=== PATIENT | male | born 1955 | race Caucasian/White ===

== ENCOUNTER 2018-02-26 05:02 | Emergency (ER) | payer OTHER ==
[2018-02-26 05:26] LABS: BASOPHILS # (AUTO) 0.2 10^3/uL (0.0-0.1); BASOPHILS % (AUTO) 2.5 %; EOSINOPHILS # (AUTO) 0.1 10^3/uL (0.0-0.7); EOSINOPHILS % (AUTO) 1.4 %; HGB - HEMOGLOBIN 14.1 g/dL (14.0-18.0); LYMPHOCYTES # (AUTO) 2.4 10^3/uL (1.5-3.5); LYMPHOCYTES % (AUTO) 28.8 %; MEAN CORPUSCULAR HEMOGLOBIN 31.8 pg (27.0-31.0); MEAN CORPUSCULAR HGB CONC 35.6 g/dL (32.0-36.0); MEAN CORPUSCULAR VOLUME 89.2 fL (80.0-94.0); MEAN PLATELET VOLUME 8.1 fL (7.4-11.4); MONOCYTES # (AUTO) 0.5 10^3/uL (0.0-1.0); MONOCYTES % (AUTO) 6.3 %; NEUTROPHILS # (AUTO) 5.1 10^3/uL (1.5-6.6); PLT - PLATELET COUNT 293 10^3/uL (130-450); RED BLOOD COUNT 4.44 10^6/uL (4.70-6.10); RED CELL DISTRIBUTION WIDTH 12.8 % (12.0-15.0); WHITE BLOOD COUNT 8.4 x10^3/uL (4.8-10.8)
[2018-02-26] MEDS ORDERED: ONDANSETRON 4 MG/2 ML VIAL IVP STA (05:38)
[2018-02-26] MEDS ORDERED: MORPHINE 2 MG/ML CARPUJECT IVP STA (05:38)
--- NOTE | 2018-02-26 05:38 | ED Physician Documentation ---
PD HPI ABD PAIN - Stated complaint Stated Complaint: UPPER ABD PX - Chief complaint Chief Complaint: Cardiac - History obtained from History obtained from: Patient - History of Present Illness Timing - onset: How many hours ago (2) Timing - duration: Hours Timing - details: Abrupt onset, Still present in ED Pain level max: 10 Pain level now: 10 Quality: Pain Location: LUQ Radiation: Left flank Improved by: Other (nothing) Worsened by: Other (no apparent exacerbating factors) Associated symptoms: Nausea, Vomiting. No: Fever, Diarrhea, Constipation Similar symptoms before: Has not had sx before Recently seen: Not recently seen Review of Systems Constitutional: reports: Sweats. denies: Fever, Chills Cardiac: reports: Reviewed and negative Respiratory: reports: Reviewed and negative GI: reports: Abdominal Pain, Nausea, Vomiting : denies: Dysuria, Frequency, Hematuria PD PAST MEDICAL HISTORY - Past Medical History Past Medical History: Yes Cardiovascular: High cholesterol Respiratory: None Endocrine/Autoimmune: Type 2 diabetes GI: None : None HEENT: Other Psych: None Musculoskeletal: Osteoarthritis Derm: None - Past Surgical History Past Surgical History: Yes Ortho: Carpal Tunnel surgery Cardiovascular: Vascular surgery - Present Medications Home Medications: Ambulatory Orders Medication Instructions Recorded Confirmed Lisinopril 10 mg PO DAILY 10/23/12 01/16/14 metFORMIN [Glucophage] 1,000 mg PO BIDWM 10/23/12 01/16/14 Atorvastatin [Lipitor] 1 tab PO DAILY 02/26/18 02/26/18 HYDROcod/ACETAM 5/325 [[place] 5/325] 1 - 2 ea PO Q6H PRN #15 tablet 02/26/18 Insulin Aspart [NovoLOG] 20 units SQ BID 02/26/18 02/26/18 Insulin Glargine [Lantus Solostar] 40 units SQ DAILY 02/26/18 02/26/18 Ondansetron Odt [Zofran] 4 mg TL Q6H PRN #10 tablet 02/26/18 hydroCHLOROthiazide 1 tab PO DAILY 02/26/18 02/26/18 [Hydrochlorothiazide] - Allergies Allergies/Adverse Reactions: Allergies Allergy/AdvReac Type Severity Reaction Status Date / Time Penicillins Allergy Intermediate Rash Verified 02/26/18 05:30 - Social History Does the pt smoke?: No Smoking Status: Never smoker Does the pt drink ETOH?: No Does the pt have substance abuse?: No - Immunizations Immunizations are current?: Yes - POLST Patient has POLST: No PD ED PE NORMAL - Vitals Vital signs reviewed: Yes - General General: Alert and oriented X 3, Well developed/nourished, Other (Severe painful distress, pale and diaphoretic) - HEENT HEENT: Moist mucous membranes - Neck Neck: Supple, no meningeal sign - Cardiac Cardiac: RRR, No murmur - Respiratory Respiratory: No respiratory distress, Clear bilaterally - Abdomen Abdomen: Soft, Non tender, Non distended - Derm Derm: Normal color, Warm and dry, No rash - Extremities Extremities: No edema Results - Vitals Vitals: Oxygen O2 Source Room air - Labs Labs: Laboratory Tests 02/26/18 02/26/18 02/26/18 05:10 05:10 05:10 WBC 8.4 RBC 4.44 L Hgb 14.1 Hct 39.6 L MCV 89.2 MCH 31.8 H MCHC 35.6 RDW 12.8 Plt Count 293 MPV 8.1 Neut # (Auto) 5.1 Lymph # (Auto) 2.4 [place] # (Auto) 0.5 Eos # (Auto) 0.1 Baso # (Auto) 0.2 H Absolute Nucleated RBC 0.01 Nucleated RBC % 0.1 Sodium 138 Potassium 3.3 L Chloride 98 L Carbon Dioxide 31 Anion Gap 9.0 BUN 18 Creatinine 1.4 H Estimated GFR (MDRD) 51 L Glucose 209 H Calcium 9.1 Total Bilirubin 0.6 AST 23 ALT 28 Alkaline Phosphatase 68 Troponin I < 0.04 Total Protein 7.0 Albumin 3.9 Globulin 3.1 Albumin/Globulin Ratio 1.3 Lipase 59 H Urine Color Urine Clarity Urine pH Ur Specific [place] Urine Protein Urine Glucose (UA) Urine Ketones Urine Occult Blood Urine Nitrite Urine Bilirubin Urine Urobilinogen Ur Leukocyte Esterase Ur Microscopic Review Urine Culture Comments 02/26/18 05:38 WBC RBC Hgb Hct MCV MCH MCHC RDW Plt Count MPV Neut # (Auto) Lymph # (Auto) [place] # (Auto) Eos # (Auto) Baso # (Auto) Absolute Nucleated RBC Nucleated RBC % Sodium Potassium Chloride Carbon Dioxide Anion Gap BUN Creatinine Estimated GFR (MDRD) Glucose Calcium Total Bilirubin AST ALT Alkaline Phosphatase Troponin I Total Protein Albumin Globulin Albumin/Globulin Ratio Lipase Urine Color YELLOW Urine Clarity CLEAR Urine pH 7.5 Ur Specific [place] 1.015 Urine Protein NEGATIVE Urine Glucose (UA) 100 H Urine Ketones NEGATIVE Urine Occult Blood NEGATIVE Urine Nitrite NEGATIVE Urine Bilirubin NEGATIVE Urine Urobilinogen 0.2 (NORMAL) Ur Leukocyte Esterase NEGATIVE Ur Microscopic Review NOT INDICATED Urine Culture Comments NOT INDICATED - Rads (name of study) CT A/P Radiology: Prelim report reviewed, See rad report PD MEDICAL DECISION MAKING - ED course Complexity details: reviewed results, re-evaluated patient, considered differential, d/w patient ED course: patient was in NAD after 4 morphine IV with zofran IV and fluids. he declined stronger pain medication, and reported excellent relief with just the 4mg morphine. - Sepsis Event Vital Signs: Oxygen O2 Source Room air Departure - Departure Disposition: 01 Home, Self Care Clinical Impression: Biliary colic Condition: Good Instructions: ED Gallstone W Biliary Colic Follow-Up: EMILIANA LEE MD [Provider Admit Priv/Credential] - Prescriptions: HYDROcod/ACETAM 5/325 [[place] 5/325] 1 - 2 ea PO Q6H PRN #15 tablet PRN Reason: Pain Ondansetron Odt [Zofran] 4 mg TL Q6H PRN #10 tablet PRN Reason: Nausea / Vomiting Discharge Date/Time: 02/26/18 07:36
[2018-02-26 05:41] LABS: ALBUMIN 3.9 g/dL (3.2-5.5); ALBUMIN/GLOBULIN RATIO 1.3 (1.0-2.2); BILIRUBIN,TOTAL 0.6 mg/dL (0.2-1.0); CALCIUM 9.1 mg/dL (8.5-10.3); CREATININE 1.4 mg/dL (0.6-1.2)
--- NOTE | 2018-02-26 05:45 | XRAY Report ---
Reason: chest pain Procedure Date: 02/26/2018 Accession Number: [id number] / [id number] Procedure: XR - Chest 1 View X-Ray CPT Code: 04791 FULL RESULT: EXAM: CHEST RADIOGRAPHY EXAM DATE: 02/26/2018 05:29 AM. CLINICAL HISTORY: Chest pain. Sudden onset left-sided chest pain tonight. COMPARISON: XR CHEST 1 VIEWS 01/07/2010 1:41 PM. TECHNIQUE: 1 view. FINDINGS: Lungs/Pleura: No focal opacities evident. No pleural effusion. No pneumothorax. Mediastinum: Within exam limitations, the cardiomediastinal contour is normal. Other: There is moderate to severe degenerative change about the left shoulder. IMPRESSION: Stable appearance of the chest without acute cardiopulmonary abnormality. RADIA
[2018-02-26] MEDS ORDERED: IOPAMIDOL-300 100 ML VIAL ONE (05:48)
[2018-02-26 05:57] LABS: BILIRUBIN,URINE NEGATIVE (NEGATIVE); GLUCOSE, URINE (UA) 100 mg/dL (NEGATIVE); KETONES,URINE (UA) NEGATIVE (NEGATIVE); LEUKOCYTE ESTERASE, URINE NEGATIVE (NEGATIVE); NITRITE,URINE NEGATIVE (NEGATIVE); OCCULT BLOOD,URINE NEGATIVE (NEGATIVE); PH,URINE 7.5 PH (5.0-7.5); PROTEIN,URINE NEGATIVE (NEGATIVE); UROBILINOGEN,URINE 0.2 (NORMAL) E.U./dL (NORMAL)
[2018-02-26 05:59] LABS: CLARITY,URINE CLEAR (CLEAR)
[2018-02-26] MEDS ORDERED: IOPAMIDOL-300 100 ML VIAL IVP ONE (06:18)
--- NOTE | 2018-02-26 06:28 | CT Report ---
Reason: LUQ pain Procedure Date: 02/26/2018 Accession Number: [id number] / [id number] Procedure: CT - Abdomen/Pelvis W/ CPT Code: FULL RESULT: EXAM: CT ABDOMEN AND PELVIS EXAM DATE: 02/26/2018 06:16 AM. CLINICAL HISTORY: Left upper quadrant pain. COMPARISONS: 01/07/2010 3:17 PM. TECHNIQUE: Routine helical CT imaging was performed through the abdomen and pelvis. IV contrast: Yes. Enteric contrast: No. Reconstructions: Coronal and sagittal. In accordance with CT protocol optimization, one or more of the following dose reduction techniques were utilized for this exam: automated exposure control, adjustment of mA and/or KV based on patient size, or use of iterative reconstructive technique. FINDINGS: Lung Bases: Unremarkable. Liver: Fatty. No suspicious masses. Gallbladder/Bile Ducts: Cholelithiasis, otherwise unremarkable. Spleen: Unremarkable. Pancreas: Unremarkable. Adrenal Glands: Unremarkable. Kidneys: Unremarkable. No suspicious masses or hydronephrosis. Peritoneal Cavity/Bowel: No bowel obstruction or inflammatory process seen. No free air or significant free fluid. No masses or adenopathy. The appendix is normal. Moderate stool burden. Pelvic Organs: Bladder and prostate appear unremarkable. Vasculature: No aneurysms or other significant abnormality. Bones: No significant abnormality. Other: None. IMPRESSION: 1. No acute inflammatory or obstructive process seen in the abdomen or pelvis. 2. Moderate stool burden. 3. Fatty liver. 4. Cholelithiasis. RADIA
[2018-02-26 07:37] VITALS: BP 127/80
== END 2018-02-26 07:36 | disposition home or self-care (01) ==
LOC: ED 05:02
DX: K80.50 Calculus of bile duct without cholangitis or cholecystitis without obstruction (principal); E11.9 Type 2 diabetes mellitus without complications; Z79.4 Long term (current) use of insulin; E78.00 Pure hypercholesterolemia, unspecified
CPT/HCPCS: 36415; 71045; 74177; 80053; 81003; 83690; 84484; 85025; 93005; 96374; 96375; 99283; 99284; Q9967; 81001; 87086

== ENCOUNTER 2018-02-26 21:45 | Emergency (ER) | payer OTHER | END 2018-02-26 21:59 | disposition left against medical advice (07) | LOC: ED 21:45 | DX: Z53.21 Procedure and treatment not carried out due to patient leaving prior to being seen by health care provider (principal) ==

== ENCOUNTER 2018-08-17 23:56 | Outpatient (CLI) | payer OTHER | END 2018-08-17 23:57 | disposition critical access hospital (66) | LOC: EMS 23:56 | PROVIDERS: ATTEND Surgery | DX: R10.10 Upper abdominal pain, unspecified (principal); R55 Syncope and collapse; R11.2 Nausea with vomiting, unspecified | CPT/HCPCS: A0425; A0427 ==

== ENCOUNTER 2018-08-18 00:19 | Emergency (ER) | payer OTHER ==
--- NOTE | 2018-08-18 01:07 | ED Physician Documentation ---
PD HPI ABD PAIN - Stated complaint Stated Complaint: SHARP ABD PAIN - Chief complaint Chief Complaint: Abd Pain - History obtained from History obtained from: Patient, EMS - History of Present Illness Timing - onset: How many hours ago (approximately 1 hour ago) Timing - details: Abrupt onset Pain level max: 10 Pain level now: 0 Quality: Pain Location: Epigastric Radiation: Other (no radiation) Improved by: Other (zofran (nausea). pain has resolved spontaneously en route) Worsened by: Palpation Associated symptoms: Nausea, Vomiting (resolved). No: Fever, Diarrhea, Constip ation Similar symptoms before: Diagnosis (similar to previous episode of gallstones and gallstone pancreatitis) Recently seen: Not recently seen - Additional information Additional information: BIBA for sudden onset severe epigastric pain, onset while at home at rest, with nausea and vomiting. Given zofran en route but no analgesics and symptoms have completely resolved by the time of this evaluation. He was inpatient in [facility] ([place] in May for similar pain which, by patient's description, sounds like it was caused by gallstone pancreatitis. He says he was in the ICU at that time, and he describes both fever and possibly jaundice. He is scheduled to have cholecystectomy in about 2 weeks at [facility]. He says he was told it would have to be an open procedure due to something about his "gut anatomy". Review of Systems Constitutional: denies: Fever, Chills, Sweats Eyes: reports: Reviewed and negative Ears: reports: Reviewed and negative Nose: reports: Reviewed and negative Throat: reports: Reviewed and negative Cardiac: reports: Reviewed and negative Respiratory: reports: Reviewed and negative GI: reports: Abdominal Pain (resolved), Nausea, Vomiting (resolved) : reports: Reviewed and negative Skin: reports: Reviewed and negative Musculoskeletal: reports: Reviewed and negative Neurologic: reports: Reviewed and negative PD PAST MEDICAL HISTORY - Past Medical History Past Medical History: Yes Cardiovascular: High cholesterol Respiratory: None Neuro: None Endocrine/Autoimmune: Type 2 diabetes GI: None : None HEENT: Other Psych: None Musculoskeletal: Osteoarthritis Derm: None - Past Surgical History Past Surgical History: Yes Ortho: Carpal Tunnel surgery Cardiovascular: Vascular surgery - Present Medications Home Medications: Ambulatory Orders Medication Instructions Recorded Confirmed Lisinopril 20 mg PO DAILY 10/23/12 08/18/18 metFORMIN [Glucophage] 2,000 mg PO BIDWM 10/23/12 08/18/18 Atorvastatin [Lipitor] 10 tab PO DAILY 02/26/18 08/18/18 Insulin Aspart [NovoLOG] 20 units SQ BID 02/26/18 08/18/18 Insulin Glargine [Lantus Solostar] 34 units SQ DAILY 02/26/18 08/18/18 hydroCHLOROthiazide 25 tab PO DAILY 02/26/18 08/18/18 [Hydrochlorothiazide] - Allergies Allergies/Adverse Reactions: Allergies Allergy/AdvReac Type Severity Reaction Status Date / Time Penicillins Allergy Intermediate Rash Verified 02/26/18 05:30 - Social History Does the pt smoke?: No Smoking Status: Never smoker Does the pt drink ETOH?: No Does the pt have substance abuse?: No - Immunizations Immunizations are current?: Yes - POLST Patient has POLST: No PD ED PE NORMAL - Vitals Vital signs reviewed: Yes - General General: Alert and oriented X 3, No acute distress, Well developed/nourished - HEENT HEENT: Moist mucous membranes - Neck Neck: Supple, no meningeal sign - Cardiac Cardiac: RRR, No murmur, No gallop, No rub - Respiratory Respiratory: No respiratory distress, Clear bilaterally - Abdomen Abdomen: Normal bowel sounds, Soft, Non tender, Non distended, No organomegaly - Back Back: No CVA TTP - Derm Derm: Normal color, Warm and dry - Extremities Extremities: No edema - Neuro Neuro: Alert and oriented X 3 Results - Vitals Vitals: Vital Signs - 24 hr 08/18/18 08/18/18 08/18/18 00:21 00:37 00:42 Temperature 36.4 C L Heart Rate 88 84 Respiratory 16 16 17 Rate Blood Pressure 117/73 122/65 O2 Saturation 93 08/18/18 08/18/18 08/18/18 01:32 01:49 02:13 Temperature Heart Rate 92 90 Respiratory 16 15 14 Rate Blood Pressure 126/68 133/72 H O2 Saturation 94 95 08/18/18 08/18/18 08/18/18 02:35 02:37 03:06 Temperature Heart Rate 101 H 105 H Respiratory 17 17 16 Rate Blood Pressure 125/87 H O2 Saturation 95 94 08/18/18 08/18/18 08/18/18 03:34 04:04 05:06 Temperature 36.9 C Heart Rate 104 H 110 H 113 H Respiratory 12 14 17 Rate Blood Pressure 105/73 119/84 H 142/75 H O2 Saturation 95 99 97 08/18/18 08/18/18 08/18/18 05:40 06:10 06:12 Temperature Heart Rate 112 H 112 H Respiratory 14 16 15 Rate Blood Pressure 118/73 130/74 O2 Saturation 95 96 08/18/18 07:44 Temperature Heart Rate 115 H Respiratory 18 Rate Blood Pressure 127/77 O2 Saturation 95 Oxygen O2 Source Room air Oxygen Flow Rate 2 - Labs Labs: Laboratory Tests 08/18/18 08/18/18 01:35 01:35 WBC 16.7 H RBC 4.32 L Hgb 13.3 L Hct 38.6 L MCV 89.2 MCH 30.7 MCHC 34.4 RDW 13.3 Plt Count 254 MPV 8.0 Neut # (Auto) 14.0 H Lymph # (Auto) 1.8 [place] # (Auto) 0.8 Eos # (Auto) 0.1 Baso # (Auto) 0.0 Absolute Nucleated RBC 0.00 Nucleated RBC % 0.0 Sodium 140 Potassium 3.3 L Chloride 101 Carbon Dioxide 27 Anion Gap 12.0 BUN 23 H Creatinine 1.1 Estimated GFR (MDRD) 68 L Glucose 151 H Calcium 8.9 Total Bilirubin 1.2 H AST 208 H ALT 118 H Alkaline Phosphatase 116 Total Protein 6.6 L Albumin 3.6 Globulin 3.0 Albumin/Globulin Ratio 1.2 Amylase 969 H* Lipase 1990 H - Rads (name of study) CT A/P with IV contrast Radiology: Prelim report reviewed, See rad report PD MEDICAL DECISION MAKING - ED course Complexity details: reviewed old records, reviewed results, re-evaluated patient, considered differential, d/w patient, d/w family ED course: Initial w/u limited to blood tests, as patient arrived asymptomatic after zofran and had benign abdominal exam. Unfortunately, he has significant elevations in amylase and lipase; he has mild elevations in bilirubin, AST, and ALT. WBC 16.4. On reevaluation, he says he is now having mild/moderate epigastric pain and thus given dilaudid 0.5mg IV (with good pain relief). [place] was contacted for consideration of transfer, but they have no beds available. Both [facility] and [facility] contacted, but no beds available. D/W Dr. Amos Meier (hospitalist at [facility]); he is willing to accept patient, but asks that CT A/P with IV contrast be performed first (if no evidence of filling defect or biliary ductal dilatation, could consider admission to [facility] for pancreatitis). After CT results, I d/w Dr. Dobson ([facility] hospitalist). He expresses concern that, should patient's condition worsen and further testing indicate that the gallstones are involved, patient's case could become too complex for [facility]. I recontacted Dr. Meier, who accepts transfer to [facility]. Patient had recurrence of mild/moderate pain and thus given another dose of dilaudid 0.5mg IV Departure - Departure Disposition: 02 Transfer Acute Care Hosp Clinical Impression: Pancreatitis, Gallstones Condition: Stable
[2018-08-18 01:43] LABS: BASOPHILS % (AUTO) 0.2 %; EOSINOPHILS # (AUTO) 0.1 10^3/uL (0.0-0.7); EOSINOPHILS % (AUTO) 0.3 %; HGB - HEMOGLOBIN 13.3 g/dL (14.0-18.0); LYMPHOCYTES # (AUTO) 1.8 10^3/uL (1.5-3.5); MEAN CORPUSCULAR HEMOGLOBIN 30.7 pg (27.0-31.0); MEAN CORPUSCULAR HGB CONC 34.4 g/dL (32.0-36.0); MEAN CORPUSCULAR VOLUME 89.2 fL (80.0-94.0); MONOCYTES # (AUTO) 0.8 10^3/uL (0.0-1.0); MONOCYTES % (AUTO) 4.8 %; NEUTROPHILS % (AUTO) 83.7 %; PLT - PLATELET COUNT 254 10^3/uL (130-450); RED BLOOD COUNT 4.32 10^6/uL (4.70-6.10); RED CELL DISTRIBUTION WIDTH 13.3 % (12.0-15.0); WHITE BLOOD COUNT 16.7 x10^3/uL (4.8-10.8)
[2018-08-18 02:05] LABS: ALBUMIN 3.6 g/dL (3.2-5.5); ALBUMIN/GLOBULIN RATIO 1.2 (1.0-2.2); BILIRUBIN,TOTAL 1.2 mg/dL (0.2-1.0); CALCIUM 8.9 mg/dL (8.5-10.3); CREATININE 1.1 mg/dL (0.6-1.2); TOTAL PROTEIN 6.6 g/dL (6.7-8.2)
[2018-08-18] MEDS ORDERED: HYDROmorphone 1 MG/ML CARPUJECT IVP STA ×2 (02:54→06:09)
[2018-08-18] MEDS ORDERED: SODIUM CHLORIDE 0.9% 1,000 ML IV STA (02:54)
[2018-08-18] MEDS ORDERED: IOPAMIDOL-300 100 ML VIAL ONE (04:19)
[2018-08-18] MEDS ORDERED: IOPAMIDOL-300 100 ML VIAL IVP ONE (05:00)
--- NOTE | 2018-08-18 05:15 | CT Report ---
Reason: abd. pain Procedure Date: 08/18/2018 Accession Number: [id number] / [id number] Procedure: CT - Abdomen/Pelvis W CPT Code: FULL RESULT: EXAM: CT PANCREAS AND PELVIS EXAM DATE: 08/18/2018 05:02 AM. CLINICAL HISTORY: Abd. pain. COMPARISONS: ABDOMEN/PELVIS W/ 02/26/2018 6:05 AM. TECHNIQUE: Routine multiphase pancreatic CT protocol with imaging of the pelvis in the venous phase. IV contrast: ISOVUE 300 100mL. Enteric contrast: None. Reconstructions: Coronal and sagittal. In accordance with CT protocol optimization, one or more of the following dose reduction techniques were utilized for this exam: automated exposure control, adjustment of mA and/or KV based on patient size, or use of iterative reconstructive technique. FINDINGS: Lung Bases: Is more atelectasis. Small little hernia. Pancreas: Mild inflammation around the pancreatic head. No pseudocyst or pancreatic necrosis. Normal pancreatic enhancement. Other Solid Organs: Normal. No masses or abnormal enhancement. Gallbladder/Biliary System: Cholelithiasis. No evidence of biliary dilatation. Peritoneal Cavity: Normal. No free fluid, free air or adenopathy. No masses or acute inflammatory process. The appendix is well visualized and normal. Pelvic Organs: Normal. The bladder, pelvic bowel loops and pelvic organs are within normal limits. Vasculature: Normal. Bones: Normal. Other: None. IMPRESSION: Mild inflammatory changes around the pancreatic head. Cholelithiasis. RADIA
[2018-08-18 08:32] VITALS: BP 146/83
== END 2018-08-18 08:40 | disposition short-term general hospital (02) ==
LOC: EDUNIT# → ED 00:19
DX: K85.90 Acute pancreatitis without necrosis or infection, unspecified (principal); K80.20 Calculus of gallbladder without cholecystitis without obstruction; E11.9 Type 2 diabetes mellitus without complications; Z79.4 Long term (current) use of insulin
CPT/HCPCS: 36415; 74177; 80053; 82150; 83690; 85025; 96374; 96376; 99285; J1170; Q9967

== ENCOUNTER 2018-08-18 08:47 | Outpatient (CLI) | payer OTHER | END 2018-08-18 08:48 | disposition short-term general hospital (02) | LOC: EMS 08:47 | PROVIDERS: ATTEND Surgery | DX: K85.90 Acute pancreatitis without necrosis or infection, unspecified (principal); K80.20 Calculus of gallbladder without cholecystitis without obstruction | CPT/HCPCS: A0425; A0426 ==

== ENCOUNTER 2019-06-22 18:53 | Emergency (ER) | payer OTHER ==
--- NOTE | 2019-06-22 19:56 | ED Physician Documentation ---
History of Present Illness - Stated complaint Stated Complaint: COUGH X12 DAYS, WHEEZING, FEVER, SINUS PAIN - Chief complaint Chief Complaint: Resp - Additonal information Additional information: This is a 63-year-old male with a history of T2DM, spontaneous pneumothorax in the past, who presents with sinus pain, cough, and fever. Patient developed nasal congestion cough and fever 12 days ago, states that the nasal congestion is feeling better, and his cough is no longer producing much sputum, but he has developed over the last week pain in his bilateral maxilla. He is having drainage of whitish snot from his nose. He has had a fever at home as high as 102 F, though today it only reached 101 degrees at its max. He denies any chest pain or shortness of breath, Other than very mild soreness after coughing that resolves at rest. He denies any confusion. He has been using Sudafed and [id number] cold relief with some improvement. Review of Systems Constitutional: reports: Fever Nose: reports: Rhinorrhea / runny nose Cardiac: denies: Chest pain / pressure Respiratory: denies: Dyspnea GI: denies: Abdominal Pain Skin: denies: Rash PD PAST MEDICAL HISTORY - Past Medical History Past Medical History: Yes Cardiovascular: High cholesterol Respiratory: None Neuro: None Endocrine/Autoimmune: Type 2 diabetes GI: None, Pancreatitis : None HEENT: Other Psych: None Musculoskeletal: Osteoarthritis Derm: None Other Past Medical History: spontaneous pneumothorax - Past Surgical History Past Surgical History: Yes General: Cholecystectomy, Other Ortho: Carpal Tunnel surgery Cardiovascular: Vascular surgery - Present Medications Home Medications: Ambulatory Orders Medication Instructions Recorded Confirmed Lisinopril 20 mg PO DAILY 10/23/12 08/18/18 metFORMIN [Glucophage] 2,000 mg PO BIDWM 10/23/12 08/18/18 Atorvastatin [Lipitor] 10 tab PO DAILY 02/26/18 08/18/18 Insulin Aspart [NovoLOG] 20 units SQ BID 02/26/18 08/18/18 Insulin Glargine [Lantus Solostar] 34 units SQ DAILY 02/26/18 08/18/18 Benzonatate [Tessalon Perle] 100 - 200 mg PO TID PRN #30 capsule 06/22/19 Doxycycline Hyclate 100 mg PO BID #20 capsule 06/22/19 Empagliflozin [Jardiance] 25 mg PO DAILY 06/22/19 06/22/19 amLODIPine [Norvasc] 10 mg PO DAILY 06/22/19 06/22/19 - Allergies Allergies/Adverse Reactions: Allergies Allergy/AdvReac Type Severity Reaction Status Date / Time Penicillins Allergy Intermediate Rash Verified 06/22/19 19:26 - Social History Does the pt smoke?: No Smoking Status: Never smoker Does the pt drink ETOH?: No Does the pt have substance abuse?: No - Immunizations Immunizations are current?: Yes - POLST Patient has POLST: No PD ED PE NORMAL - Vitals Vital signs reviewed: Yes - General General: Alert and oriented X 3, No acute distress, Other (Nontoxic-appearing male sitting up in bed awake and alert) - HEENT HEENT: Other (Mild posterior pharynx erythema, no exudate. Patient has some tenderness over the bilateral axilla. No current purulent drainage from the nose. Ears are normal in appearance with flat tympanic membranes. No facial redness or swelling) - Neck Neck: Supple, no meningeal sign - Cardiac Cardiac: No murmur, Other (Mild tachycardia, 106 on my examination) - Respiratory Respiratory: No respiratory distress, Clear bilaterally, Other (Intermittent cough. 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, No motor deficit, No sensory deficit, Normal speech - Psych Psych: Normal mood, Normal affect Results - Vitals Vitals: Vital Signs - 24 hr 06/22/19 06/22/19 19:06 20:25 Temperature 37.5 C 36.8 C Heart Rate 118 H 118 H Respiratory 18 18 Rate Blood Pressure 155/92 H 115/87 H O2 Saturation 96 96 Oxygen O2 Source Room air - EKG (time done) 19:13 Other comments: Other comments (Rate 116, rhythm sinus tachycardia, there is no ST segment elevation or depression, no abnormal T wave inversions, intervals within normal limits) - Rads (name of study) CXR Radiology: Other (No acute cardiopulmonary abnormality) PD MEDICAL DECISION MAKING - ED course Complexity details: considered differential (URI, pneumonia, sinusitis, otitis media, pharyngitis) ED course: Patient is tachycardic on arrival, but he is well-appearing, alert, has no neurologic deficits, and there is a reassuring exam with clear breath sounds. His oxygen saturation is normal. Given the duration of his cough a chest x-ray is obtained which shows no signs in the acute cardiopulmonary abnormality. He did have an EKG performed in triage because of his tachycardia, this shows a sinus rhythm with no signs of ischemia or dysrhythmia. Patient has no shortness of breath, no chest pain. He does have maxillary sinus tenderness, fever as well as the fact that the sinus pain began after his initial viral sounding syndrome was being, this appears to be a bacterial sinusitis. He has a allergy to penicillins will treat with doxycycline. He is well-appearing, there is no copious purulent drainage from his nose at this time no signs of more serious or nefarious infection. He does not have any redness or swelling of his face or severe headache. Clinically appears mildly dehydrated which is likely contributing to his initial tachycardia, however he is tolerating p.o. without issue, does not appear to need IV fluids. On my repeat examination his heart rate is in the high 90s, and he continues to be well-appearing. I discussed treatment plan with antibiotics, I prescribed him Tessalon Perles for his cough, and reviewed return precautions for any worsening, especially facial swelling, fever despite the antibiotics, Chest pain or trouble breathing. Patient agreed this plan was discharged home in good condition Departure - Departure Disposition: 01 Home, Self Care Clinical Impression: Sinusitis Qualifiers: Sinusitis location: maxillary Chronicity: acute Recurrence: not specified as recurrent Qualified Code(s): J01.00 - Acute maxillary sinusitis, unspecified Condition: Good Instructions: ED Sinusitis Abx Tx Prescriptions: Benzonatate [Tessalon Perle] 100 - 200 mg PO TID PRN #30 capsule PRN Reason: Cough Doxycycline Hyclate 100 mg PO BID #20 capsule Comments: You appear to have a sinusitis. Get plenty of rest, drink fluids, take the antibiotic as prescribed. If you having worsening symptoms, such as facial swelling, fever despite the antibiotics, or confusion, return to the emergency department. Discharge Date/Time: 06/22/19 21:19
--- NOTE | 2019-06-22 20:08 | XRAY Report ---
Reason: cough/tachycardic Procedure Date: 06/22/2019 Accession Number: [id number] / [id number] Procedure: XR - Chest 2 View X-Ray CPT Code: 41116 Final Report FULL RESULT: EXAM: CHEST RADIOGRAPHY EXAM DATE: 06/22/2019 07:54 PM. CLINICAL HISTORY: Cough/tachycardic. COMPARISON: CHEST 1 VIEW 02/26/2018 5:18 AM. TECHNIQUE: 2 views. FINDINGS: Lungs/Pleura: No localized infiltrate, consolidation, effusion, or pneumothorax. Mediastinum: Heart and mediastinal contours are unremarkable. Upper lobe vessels not distended. Other: Degenerative changes including flowing prevertebral soft tissue calcification typical of DISH. IMPRESSION: No acute disease. RADIA
[2019-06-22 20:26] VITALS: BP 115/87
[2019-06-22] MEDS ORDERED: DOXYCYCLINE 100 MG TABLET PO STA (20:38)
[2019-06-22] MEDS ORDERED: BENZONATATE 100 MG CAPSULE PO STA (20:38)
== END 2019-06-22 21:19 | disposition home or self-care (01) ==
LOC: ED 18:53
DX: J01.00 Acute maxillary sinusitis, unspecified (principal); R00.0 Tachycardia, unspecified; E86.0 Dehydration; E11.9 Type 2 diabetes mellitus without complications; Z79.4 Long term (current) use of insulin
CPT/HCPCS: 71046; 93005; 99283; 99284; A9270

== ENCOUNTER 2020-01-25 13:19 | Outpatient (CLI) | payer MEDICARE, OTHER | END 2020-01-25 13:20 | disposition home or self-care (01) | LOC: COV 13:19 | PROVIDERS: ATTEND Family Medicine | DX: R50.9 Fever, unspecified (principal); R53.83 Other fatigue; J02.9 Acute pharyngitis, unspecified; R19.7 Diarrhea, unspecified; R09.81 Nasal congestion; Z20.828 Contact with and (suspected) exposure to other viral communicable diseases ==

== ENCOUNTER 2020-03-15 09:39 | Emergency (ER) | payer MEDICARE, OTHER ==
[2020-03-15] MEDS ORDERED: SODIUM CHLORIDE 0.9% 1,000 ML IV STA (10:09)
--- NOTE | 2020-03-15 10:14 | ED Physician Documentation ---
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 He has a headache to the right side of his head he has some blurring of the vision from the right eye only. He relates that he feels confused and this morning he tried to write a check and it took him for tries to get right. He states this is never been this way for him. He has diabetes and he gets up to go to the bathroom about 3 times per night and he takes both Lantus and short acting insulin as well as metformin and he has run a sugar over 227 this past week he does not usually check his sugars. He does not otherwise feel ill. No fever, nausea, pains or weakness. Review of Systems Constitutional: denies: Fever Eyes: reports: Decreased vision, Photophobia. denies: Loss of vision, Discharge, Irritation Ears: denies: Ear pain Nose: denies: Rhinorrhea / runny nose, Congestion Throat: denies: Sore throat Cardiac: denies: Chest pain / pressure, Palpitations Respiratory: denies: Dyspnea, Cough GI: denies: Abdominal Pain, Nausea, Vomiting, Constipation, Diarrhea : denies: Dysuria, Frequency Skin: denies: Rash Musculoskeletal: denies: Neck pain, Back pain, Extremity pain Neurologic: reports: Confused, Headache. denies: Generalized weakness, Focal weakness, Numbness, Syncope, Seizure, Head injury, LOC PD PAST MEDICAL HISTORY - Past Medical History Cardiovascular: High cholesterol Respiratory: None Neuro: None Endocrine/Autoimmune: Type 2 diabetes GI: None, Pancreatitis : None HEENT: Other Psych: None Musculoskeletal: Osteoarthritis Derm: None - Past Surgical History Past Surgical History: Yes General: Cholecystectomy, Other Ortho: Carpal Tunnel surgery Cardiovascular: Vascular surgery - Present Medications Home Medications: Ambulatory Orders Medication Instructions Recorded Confirmed Lisinopril 20 mg PO DAILY 10/23/12 08/18/18 metFORMIN [Glucophage] 2,000 mg PO BIDWM 10/23/12 08/18/18 Atorvastatin [Lipitor] 10 tab PO DAILY 02/26/18 08/18/18 Insulin Aspart [NovoLOG] 20 units SQ BID 02/26/18 08/18/18 Insulin Glargine [Lantus Solostar] 34 units SQ DAILY 02/26/18 08/18/18 Benzonatate [Tessalon Perle] 100 - 200 mg PO TID PRN #30 capsule 06/22/19 Doxycycline Hyclate 100 mg PO BID #20 capsule 06/22/19 Empagliflozin [Jardiance] 25 mg PO DAILY 06/22/19 06/22/19 amLODIPine [Norvasc] 10 mg PO DAILY 06/22/19 06/22/19 - Allergies Allergies/Adverse Reactions: Allergies Allergy/AdvReac Type Severity Reaction Status Date / Time Penicillins Allergy Intermediate Rash Verified 03/15/20 09:46 - Social History Does the pt smoke?: No Smoking Status: Never smoker Does the pt drink ETOH?: No Does the pt have substance abuse?: No - Immunizations Immunizations are current?: Yes - POLST Patient has POLST: No PD ED PE NORMAL - Vitals Vital signs reviewed: Yes (hypertensive ) - General General: Alert and oriented X 3, No acute distress, Well developed/nourished - HEENT HEENT: Atraumatic, PERRL, EOMI, Ears normal, Pharynx benign, Other (dry mucous membranes ) - Neck Neck: Supple, no meningeal sign, No bony TTP - Cardiac Cardiac: RRR, No murmur - Respiratory Respiratory: No respiratory distress, Clear bilaterally - Abdomen Abdomen: Soft, Non tender - Back Back: No CVA TTP, No spinal TTP - Derm Derm: Normal color, Warm and dry, No rash - Extremities Extremities: No deformity, No edema, No calf tenderness / cord - Neuro Neuro: Alert and oriented X 3, 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, No motor deficit, No sensory deficit, Normal speech Eye Opening: Spontaneous Motor: Obeys Commands Verbal: Oriented GCS Score: 15 - Psych Psych: Normal mood, Normal affect Results - Vitals Vitals: Vital Signs - 24 hr 03/15/20 03/15/20 03/15/20 09:44 10:16 12:00 Temperature 36.9 C Heart Rate 77 75 67 Respiratory 17 13 16 Rate Blood Pressure 160/92 H 140/90 H 141/76 H O2 Saturation 98 95 95 03/15/20 03/15/20 12:30 13:00 Temperature 36.5 C Heart Rate 65 73 Respiratory 12 16 Rate Blood Pressure 141/78 H 140/72 H O2 Saturation 95 97 Oxygen O2 Source Room air - Labs Labs: Laboratory Tests 03/15/20 03/15/20 03/15/20 09:50 09:53 10:26 WBC 6.4 RBC 4.94 Hgb 15.2 Hct 44.7 MCV 90.5 MCH 30.8 MCHC 34.0 RDW 12.9 Plt Count 229 MPV 9.4 Neut # (Auto) 4.2 Lymph # (Auto) 1.6 [place] # (Auto) 0.5 Eos # (Auto) 0.1 Baso # (Auto) 0.0 Absolute Nucleated RBC 0.00 Nucleated RBC % 0.0 VBG pH VBG pCO2 VBG pO2 VBG HCO3 VBG Total CO2 VBG O2 Saturation VBG Base Excess Sodium Potassium Chloride Carbon Dioxide Anion Gap BUN Creatinine Estimated GFR (MDRD) Glucose POC Whole Bld Glucose 109 H Lactic Acid Calcium Total Bilirubin AST ALT Alkaline Phosphatase Total Protein Albumin Globulin Albumin/Globulin Ratio Lipase Urine Color LIGHT YELLOW Urine Clarity CLEAR Urine pH 6.0 Ur Specific [place] 1.015 Urine Protein NEGATIVE Urine Glucose (UA) >=1000 H Urine Ketones NEGATIVE Urine Occult Blood NEGATIVE Urine Nitrite NEGATIVE Urine Bilirubin NEGATIVE Urine Urobilinogen 0.2 (NORMAL) Ur Leukocyte Esterase NEGATIVE Ur Microscopic Review NOT INDICATED Urine Culture Comments NOT INDICATED Serum Ketones 03/15/20 03/15/20 03/15/20 10:26 10:26 10:26 WBC RBC Hgb Hct MCV MCH MCHC RDW Plt Count MPV Neut # (Auto) Lymph # (Auto) [place] # (Auto) Eos # (Auto) Baso # (Auto) Absolute Nucleated RBC Nucleated RBC % VBG pH 7.387 VBG pCO2 39.7 L VBG pO2 39.3 VBG HCO3 23.3 VBG Total CO2 24.5 VBG O2 Saturation 78.3 VBG Base Excess -1.5 Sodium 140 Potassium 3.7 Chloride 105 Carbon Dioxide 27 Anion Gap 8.0 BUN 22 H Creatinine 1.0 Estimated GFR (MDRD) 75 L Glucose 107 H POC Whole Bld Glucose Lactic Acid 1.1 Calcium 8.9 Total Bilirubin 0.6 AST 20 ALT 25 Alkaline Phosphatase 75 Total Protein 7.0 Albumin 4.1 Globulin 2.9 Albumin/Globulin Ratio 1.4 Lipase 40 Urine Color Urine Clarity Urine pH Ur Specific [place] Urine Protein Urine Glucose (UA) Urine Ketones Urine Occult Blood Urine Nitrite Urine Bilirubin Urine Urobilinogen Ur Leukocyte Esterase Ur Microscopic Review Urine Culture Comments Serum Ketones NEGATIVE Procedures - IVC sono (time) 1005 Bedside IVC sono: IVC measures (cm) (0.77), IVC collapsed c insp (cm) (complete), Dehydration (est 2 liter + deficit) PD MEDICAL DECISION MAKING - ED course Complexity details: reviewed old records, reviewed results, re-evaluated patient, considered differential, d/w patient ED course: 64 y/o male with marked stress has developed headache, blurred vision in the right eye and confusion and he is found to be dehydrated on interrogation of the IVC. He is administered IV saline and an MRI of the brain is sought as our CAT scanner is down until noon today. He has resolution of his symptoms and his MRI is normal. I did discuss with the patient the stress and his sleep. He will follow up with [facility]. [facility] Departure - Departure Disposition: 01 Home, Self Care Clinical Impression: Dehydration Condition: Stable Instructions: ED Dehydration Follow-Up: [facility] [Provider Group] Comments: Today you were significantly dehydrated and this is likely secondary to your diabetes being out of control. Drink more fluids control your diabetes as best you can and follow-up with a primary care doctor. Discharge Date/Time: 03/15/20 13:20
[2020-03-15 10:22] LABS: BILIRUBIN,URINE NEGATIVE (NEGATIVE); GLUCOSE, URINE (UA) >=1000 mg/dL (NEGATIVE); KETONES,URINE (UA) NEGATIVE (NEGATIVE); LEUKOCYTE ESTERASE, URINE NEGATIVE (NEGATIVE); NITRITE,URINE NEGATIVE (NEGATIVE); OCCULT BLOOD,URINE NEGATIVE (NEGATIVE); PROTEIN,URINE NEGATIVE (NEGATIVE); UROBILINOGEN,URINE 0.2 (NORMAL) E.U./dL (NORMAL)
[2020-03-15 10:23] LABS: CLARITY,URINE CLEAR (CLEAR)
[2020-03-15 10:31] LABS: BASOPHILS % (AUTO) 0.3 %; EOSINOPHILS # (AUTO) 0.1 10^3/uL (0.0-0.7); EOSINOPHILS % (AUTO) 0.9 %; HGB - HEMOGLOBIN 15.2 g/dL (14.0-18.0); LYMPHOCYTES # (AUTO) 1.6 10^3/uL (1.5-3.5); LYMPHOCYTES % (AUTO) 25.3 %; MEAN CORPUSCULAR HEMOGLOBIN 30.8 pg (27.0-31.0); MEAN CORPUSCULAR VOLUME 90.5 fL (80.0-94.0); MEAN PLATELET VOLUME 9.4 fL (7.4-11.4); MONOCYTES # (AUTO) 0.5 10^3/uL (0.0-1.0); NEUTROPHILS # (AUTO) 4.2 10^3/uL (1.5-6.6); NEUTROPHILS % (AUTO) 65.2 %; PLT - PLATELET COUNT 229 10^3/uL (130-450); RED BLOOD COUNT 4.94 10^6/uL (4.70-6.10); RED CELL DISTRIBUTION WIDTH 12.9 % (12.0-15.0); WHITE BLOOD COUNT 6.4 x10^3/uL (4.8-10.8)
[2020-03-15 10:41] LABS: VBG BASE EXCESS -1.5 mmol/L (-2 - +2); VBG PCO2 39.7 mmHg (41-51); VBG PH 7.387 (7.31-7.41); VBG PO2 39.3 mmHg (25-47); VBG TOTAL CO2 24.5 mmol/L (24-29)
[2020-03-15 10:49] LABS: ALBUMIN 4.1 g/dL (3.2-5.5); ALBUMIN/GLOBULIN RATIO 1.4 (1.0-2.2); ALKALINE PHOSPHATASE 75 IU/L (42-121); ALT ALANINE AMINOTRANSFERASE 25 IU/L (10-60); AST ASPARTATE AMINOTRANSFERASE 20 IU/L (10-42); BILIRUBIN,TOTAL 0.6 mg/dL (0.2-1.0); BUN - BLOOD UREA NITROGEN 22 mg/dL (6-20); CALCIUM 8.9 mg/dL (8.5-10.3); CARBON DIOXIDE - CO2 27 mmol/L (21-32); CHLORIDE 105 mmol/L (101-111); GLUCOSE 107 mg/dL (70-100); LIPASE 40 U/L (22-51); SODIUM 140 mmol/L (135-145)
[2020-03-15 10:52] LABS: KETONES, SERUM (ACETEST) NEGATIVE (NEGATIVE)
--- NOTE | 2020-03-15 11:48 | MRI Report ---
PROCEDURE: Brain W/O INDICATIONS: right sided headache right eye blurred confused TECHNIQUE: Noncontrast axial T1 spin echo, axial T2 fast spin echo, sagittal and axial FLAIR, coronal T2 fast sp in echo, axial gradient echo, axial diffusion and ADC through the brain. COMPARISON: None. FINDINGS: Image quality: Excellent. CSF Spaces: Basal cisterns are patent. No extra-axial fluid collections. Ventricles are normal in size and shape. Brain: No intracranial masses or hemorrhage. Mild diffuse cerebral volume loss. Minimal degree of n onspecific punctate high FLAIR signal foci within the periventricular and subcortical white matter. G ray/white matter interface is normal. Brainstem appears normal. Diffusion-weighted images demonstra te no acute ischemic insult. No chronic ischemic insults. Normal intravascular flow voids are prese nt. Skull and face: Calvarium has normal marrow signal. Orbits appear normal. Sinuses: Sinuses and mastoids are clear. IMPRESSION: 1. Mild flow volume loss. Minimal small vessel ischemic disease. 2. No acute process. No recent infarct. Reviewed by: Tj Brambila MD on 03/15/2020 11:47 AM PDT Approved by: Tj Brambila MD on 03/15/2020 11:47 AM PDT Station ID: [id number]
[2020-03-15 13:06] VITALS: BP 140/72
== END 2020-03-15 13:20 | disposition home or self-care (01) ==
LOC: ED 09:39
DX: E86.0 Dehydration (principal); E11.9 Type 2 diabetes mellitus without complications; Z79.4 Long term (current) use of insulin
CPT/HCPCS: 36415; 70551; 80053; 81001; 81003; 82009; 82803; 83605; 83690; 85025; 87086; 96360; 99284

== ENCOUNTER 2020-08-13 07:00 | Outpatient (CLI) | payer MEDICARE, OTHER | END 2020-08-13 23:59 | disposition home or self-care (01) | LOC: COV 07:00 | PROVIDERS: ATTEND Physician Assistant | DX: A09 Infectious gastroenteritis and colitis, unspecified (principal); Z20.822 Contact with and (suspected) exposure to COVID-19 ==

== ENCOUNTER 2020-08-28 11:43 | Emergency (ER) | payer MEDICARE, OTHER ==
[2020-08-28] MEDS ORDERED: SODIUM CHLORIDE 0.9% 1,000 ML IV STA ×2 (12:38)
[2020-08-28] MEDS ORDERED: IBUPROFEN 800 MG TABLET PO STA (12:38)
[2020-08-28] MEDS ORDERED: ONDANSETRON 4 MG/2 ML VIAL IVP STA (12:38)
--- NOTE | 2020-08-28 12:41 | ED Physician Documentation ---
History of Present Illness - Stated complaint Stated Complaint: FEVER/UNWELL - Chief complaint Chief Complaint: General - History obtained from History obtained from: Patient - History of Present Illness Timing: Yesterday Pain level max: 9 Pain level now: 0 - Additonal information Additional information: Patient is a 64-year-old male who presents to the emergency department stating that he has a fever for the past 24 hours. He states he received his second Covid vaccination 3 days ago. Was tired the next day, woke up on the second day and felt fine. Last night developed a fever and "huge abdominal pain". He states the abdominal pain lasted about 4 hours but the fever has continued. History of pancreatitis in the past. Has had a cholecystectomy. No cough. Mild nausea. No vomiting or diarrhea. Took Tylenol this morning. No changes to his medications. No recent travel. Currently does not have any pain. Review of Systems Ten Systems: 10 systems reviewed and negative Constitutional: reports: Fever, Chills Ears: denies: Ear pain Nose: denies: Rhinorrhea / runny nose, Congestion Throat: denies: Sore throat Cardiac: denies: Chest pain / pressure Respiratory: denies: Cough GI: reports: Nausea. denies: Vomiting, Diarrhea, Hematemesis, Bloody / black stool Skin: denies: Rash Musculoskeletal: denies: Neck pain, Back pain Neurologic: denies: Headache PD PAST MEDICAL HISTORY - Past Medical History Past Medical History: Yes Cardiovascular: High cholesterol Respiratory: None Neuro: None Endocrine/Autoimmune: Type 2 diabetes GI: None, Pancreatitis : None HEENT: Other Psych: None Musculoskeletal: Osteoarthritis Derm: None - Past Surgical History Past Surgical History: Yes General: Cholecystectomy, Other Ortho: Carpal Tunnel surgery Cardiovascular: Vascular surgery - Present Medications Home Medications: Ambulatory Orders Medication Instructions Recorded Confirmed Lisinopril 20 mg PO DAILY 10/23/12 08/28/20 metFORMIN [Glucophage] 2,000 mg PO BIDWM 10/23/12 08/18/18 Atorvastatin [Lipitor] 10 tab PO DAILY 02/26/18 08/28/20 Insulin Aspart [NovoLOG] 20 units SQ BID 02/26/18 08/28/20 Insulin Glargine [Lantus Solostar] 34 units SQ DAILY 02/26/18 08/28/20 Doxycycline Hyclate 100 mg PO BID #20 capsule 06/22/19 08/28/20 Empagliflozin [Jardiance] 25 mg PO DAILY 06/22/19 08/28/20 amLODIPine [Norvasc] 10 mg PO DAILY 06/22/19 08/28/20 - Allergies Allergies/Adverse Reactions: Allergies Allergy/AdvReac Type Severity Reaction Status Date / Time Penicillins Allergy Intermediate Rash Verified 08/28/20 12:01 - Social History Does the pt smoke?: No Smoking Status: Never smoker Does the pt drink ETOH?: No Does the pt have substance abuse?: No - Immunizations Immunizations are current?: Yes - POLST Patient has POLST: No PD ED PE NORMAL - Vitals Vital signs reviewed: Yes - General General: Alert and oriented X 3, No acute distress, Well developed/nourished - HEENT HEENT: PERRL, Ears normal, Moist mucous membranes, Pharynx benign - Neck Neck: Supple, no meningeal sign - Cardiac Cardiac: RRR, Strong equal pulses - Respiratory Respiratory: No respiratory distress, Clear bilaterally - Abdomen Abdomen: Soft, Non tender, Non distended - Back Back: No CVA TTP, No spinal TTP - Derm Derm: Warm and dry - Extremities Extremities: No edema - Neuro Neuro: Alert and oriented X 3 - Psych Psych: Normal mood, Normal affect Results - Vitals Vitals: Vital Signs - 24 hr 08/28/20 08/28/20 08/28/20 11:50 12:19 13:07 Temperature 39.1 C H 37.0 C Heart Rate 117 H 110 H 103 H Respiratory 18 13 18 Rate Blood Pressure 150/85 H 170/83 H 167/90 H O2 Saturation 93 94 93 08/28/20 08/28/20 14:01 14:56 Temperature 37.2 C 36.9 C Heart Rate 99 96 Respiratory 14 15 Rate Blood Pressure 154/80 H 142/76 H O2 Saturation 93 93 Oxygen O2 Source Room air - Labs Labs: Laboratory Tests 08/28/20 08/28/20 08/28/20 12:40 12:40 12:40 WBC 9.7 RBC 5.21 Hgb 15.9 Hct 47.0 MCV 90.2 MCH 30.5 MCHC 33.8 RDW 12.9 Plt Count 205 MPV 9.8 Neut # (Auto) 8.5 H Lymph # (Auto) 0.4 L [place] # (Auto) 0.7 Eos # (Auto) 0.0 Baso # (Auto) 0.0 Absolute Nucleated RBC 0.00 Nucleated RBC % 0.0 PT 13.2 H INR 1.2 APTT 27.9 Sodium 135 Potassium 3.7 Chloride 99 L Carbon Dioxide 22 Anion Gap 14.0 H BUN 22 H Creatinine 1.1 Estimated GFR (MDRD) 67 L Glucose 130 H Lactic Acid Calcium 9.2 Total Bilirubin 0.7 AST 375 H ALT 392 H Alkaline Phosphatase 212 H Total Protein 7.6 Albumin 4.3 Globulin 3.3 Albumin/Globulin Ratio 1.3 Lipase 34 Urine Color Urine Clarity Urine pH Ur Specific [place] Urine Protein Urine Glucose (UA) Urine Ketones Urine Occult Blood Urine Nitrite Urine Bilirubin Urine Urobilinogen Ur Leukocyte Esterase Ur Microscopic Review Urine Culture Comments Nasal Adenovirus (PCR) Nasal B. parapertussis DNA (PCR) Nasal Coronavir 229E PCR Nasal Coronavir HKU1 PCR Nasal Coronavir NL63 PCR Nasal Coronavir OC43 PCR Nasal Enterovir/Rhinovir PCR Nasal Influenza B PCR Nasal Influenza A PCR Nasal Parainfluen 1 PCR Nasal Parainfluen 2 PCR Nasal Parainfluen 3 PCR Nasal Parainfluen 4 PCR Nasal RSV (PCR) Nasal B.pertussis DNA PCR Nasal C.pneumoniae (PCR) Michi Human Metapneumo PCR Nasal M.pneumoniae (PCR) Nasal SARS-CoV-2 (PCR) 08/28/20 08/28/20 08/28/20 12:40 12:55 13:03 WBC RBC Hgb Hct MCV MCH MCHC RDW Plt Count MPV Neut # (Auto) Lymph # (Auto) [place] # (Auto) Eos # (Auto) Baso # (Auto) Absolute Nucleated RBC Nucleated RBC % PT INR APTT Sodium Potassium Chloride Carbon Dioxide Anion Gap BUN Creatinine Estimated GFR (MDRD) Glucose Lactic Acid 0.9 Calcium Total Bilirubin AST ALT Alkaline Phosphatase Total Protein Albumin Globulin Albumin/Globulin Ratio Lipase Urine Color YELLOW Urine Clarity CLEAR Urine pH 5.5 Ur Specific [place] 1.025 Urine Protein NEGATIVE Urine Glucose (UA) >=1000 H Urine Ketones 40 H Urine Occult Blood TRACE-INTA Urine Nitrite NEGATIVE Urine Bilirubin NEGATIVE Urine Urobilinogen 0.2 (NORMAL) Ur Leukocyte Esterase NEGATIVE Ur Microscopic Review NOT INDICATED Urine Culture Comments NOT INDICATED Nasal Adenovirus (PCR) NOT DETECTED Nasal B. parapertussis DNA (PCR) NOT DETECTED Nasal Coronavir 229E PCR NOT DETECTED Nasal Coronavir HKU1 PCR NOT DETECTED Nasal Coronavir NL63 PCR NOT DETECTED Nasal Coronavir OC43 PCR NOT DETECTED Nasal Enterovir/Rhinovir PCR NOT DETECTED Nasal Influenza B PCR NOT DETECTED Nasal Influenza A PCR NOT DETECTED Nasal Parainfluen 1 PCR NOT DETECTED Nasal Parainfluen 2 PCR NOT DETECTED Nasal Parainfluen 3 PCR NOT DETECTED Nasal Parainfluen 4 PCR NOT DETECTED Nasal RSV (PCR) NOT DETECTED Nasal B.pertussis DNA PCR NOT DETECTED Nasal C.pneumoniae (PCR) NOT DETECTED Michi Human Metapneumo PCR NOT DETECTED Nasal M.pneumoniae (PCR) NOT DETECTED Nasal SARS-CoV-2 (PCR) NOT DETECTED - Rads (name of study) CT abd/pelvis Radiology: Prelim report reviewed, EMP read contemporaneously, See rad report RUQ US Radiology: Prelim report reviewed, EMP read contemporaneously, See rad report cxr Radiology: Prelim report reviewed, EMP read contemporaneously, See rad report (No acute cardiopulmonary process demonstrated radiographically. ) PD MEDICAL DECISION MAKING - ED course Complexity details: reviewed results, re-evaluated patient, considered differential, d/w patient ED course: 64 year old male with fever today. unclear etiology. No acute findings on cxr, CT abd/pelvis, and abd US. Mild LFT elevation, unclear etiology. We will have the patient recheck this with his doctor. Feels better after IV fluids and Motrin. Patient counseled regarding signs and symptoms for which I believe and urgent re-evaluation would be necessary. Patient with good understanding of and agreement to plan and is comfortable going home at this time This document was made in part using voice recognition software. While efforts are made to proofread this document, sound alike and grammatical errors may occur. IMPRESSION: 1. Patient is status post interval cholecystectomy with small amount of pneumobilia most consistent with postsurgical changes. 2. Normal appendix. No bowel obstruction. No free fluid or free air. No abscess collection. Small hiatal hernia. Sigmoid diverticulosis without evidence of acute diverticulitis. No bowel obstruction. Mild to moderate constipation. 3. Mild bibasilar dependent atelectasis. RUQ US IMPRESSION: 1. Status post cholecystectomy. 2. Biliary tree is nondilated. Pneumobilia noted likely related to postsurgical change versus infection with gas-forming organism. Recommend correlation with clinical and laboratory data. 3. Echogenic liver. Finding typically represents fatty infiltration, however the finding is not significant other etiologies including hepatic cirrhosis can present similar appearance. Recommend correlation with clinical and laboratory data. Departure - Departure Disposition: 01 Home, Self Care Clinical Impression: Elevated LFTs Fever Qualifiers: Fever type: unspecified Qualified Code(s): R50.9 - Fever, unspecified Condition: Good Instructions: ED Fever Unconf Cause Follow-Up: Your,doctor in 1 week [Other] Comments: The cause of your symptoms is unclear today. You should have your liver tests rechecked with your doctor later this week. The fever could still be a reaction to the second vaccination. Your CT scan and ultrasound did not show any acute abnormalities. Your labs do not show any acute abnormalities other than the elevation in your liver tests. Discharge Date/Time: 08/28/20 16:10
[2020-08-28 12:53] LABS: BASOPHILS % (AUTO) 0.2 %; EOSINOPHILS % (AUTO) 0.1 %; HGB - HEMOGLOBIN 15.9 g/dL (14.0-18.0); LYMPHOCYTES # (AUTO) 0.4 10^3/uL (1.5-3.5); LYMPHOCYTES % (AUTO) 4.3 %; MEAN CORPUSCULAR HEMOGLOBIN 30.5 pg (27.0-31.0); MEAN CORPUSCULAR HGB CONC 33.8 g/dL (32.0-36.0); MEAN CORPUSCULAR VOLUME 90.2 fL (80.0-94.0); MEAN PLATELET VOLUME 9.8 fL (7.4-11.4); MONOCYTES # (AUTO) 0.7 10^3/uL (0.0-1.0); MONOCYTES % (AUTO) 7.3 %; NEUTROPHILS # (AUTO) 8.5 10^3/uL (1.5-6.6); NEUTROPHILS % (AUTO) 87.7 %; PLT - PLATELET COUNT 205 10^3/uL (130-450); RED BLOOD COUNT 5.21 10^6/uL (4.70-6.10); RED CELL DISTRIBUTION WIDTH 12.9 % (12.0-15.0); WHITE BLOOD COUNT 9.7 x10^3/uL (4.8-10.8)
[2020-08-28 12:57] LABS: INR 1.2 (0.8-1.2); PT - PROTHROMBIN TIME 13.2 secs (9.9-12.6)
[2020-08-28 13:04] LABS: PARTIAL THROMBOPLASTIN TIME 27.9 secs (24.9-33.3)
[2020-08-28 13:05] LABS: BILIRUBIN,URINE NEGATIVE (NEGATIVE); GLUCOSE, URINE (UA) >=1000 mg/dL (NEGATIVE); KETONES,URINE (UA) 40 mg/dL (NEGATIVE); LEUKOCYTE ESTERASE, URINE NEGATIVE (NEGATIVE); NITRITE,URINE NEGATIVE (NEGATIVE); OCCULT BLOOD,URINE TRACE-INTA (NEGATIVE); PH,URINE 5.5 PH (5.0-7.5); PROTEIN,URINE NEGATIVE (NEGATIVE); UROBILINOGEN,URINE 0.2 (NORMAL) E.U./dL (NORMAL)
[2020-08-28 13:10] LABS: CLARITY,URINE CLEAR (CLEAR)
--- NOTE | 2020-08-28 13:11 | XRAY Report ---
PROCEDURE: Chest 1 View X-Ray INDICATIONS: Fever TECHNIQUE: One view of the chest was acquired. COMPARISON: 06/22/2019 FINDINGS: Surgical changes and devices: None. Lungs and pleura: No pleural effusions or pneumothorax. Lungs are clear. Mediastinum: Mediastinal contours appear normal. Heart size is normal. Bones and chest wall: No suspicious bony lesions. Overlying soft tissues appear unremarkable. IMPRESSION: No acute cardiopulmonary process demonstrated radiographically. Reviewed by: Elier Back MD on 08/28/2020 1:10 PM PDT Approved by: Elier Back MD on 08/28/2020 1:10 PM PDT Station ID: [id number]
[2020-08-28 13:16] LABS: ALBUMIN 4.3 g/dL (3.2-5.5); ALBUMIN/GLOBULIN RATIO 1.3 (1.0-2.2); BILIRUBIN,TOTAL 0.7 mg/dL (0.2-1.0); CALCIUM 9.2 mg/dL (8.5-10.3); CREATININE 1.1 mg/dL (0.6-1.2); POTASSIUM 3.7 mmol/L (3.5-5.0); TOTAL PROTEIN 7.6 g/dL (6.7-8.2)
[2020-08-28] MEDS ORDERED: IOVERSOL 320 100 ML VIAL IVP ONE ×2 (13:35→15:49)
--- NOTE | 2020-08-28 14:02 | CT Report ---
PROCEDURE: Abdomen/Pelvis W INDICATIONS: fever, abd pain CONTRAST: IV CONTRAST: Optiray 320 ml: 100 PO CONTRAST: *NO PO CONTRAST TECHNIQUE: After the administration of IV contrast, 5 mm thick sections acquired from the diaphragms to the symp hysis. 5 mm thick coronal and sagittal reformats were acquired. For radiation dose reduction, the f ollowing was used: automated exposure control, adjustment of mA and/or kV according to patient size. COMPARISON: 08/18/2018 and 02/26/2018. FINDINGS: Image quality: Excellent. ABDOMEN: Lung bases: Dependent atelectasis in posterior aspect of bilateral lower lung reed are seen. Heart size is normal. Solid organs: Liver and spleen are normal in size and enhancement. Gallbladder is surgically absent Biliary system is non dilated. Small amount of pneumobilia is seen, likely related to prior cholecy stectomy. Pancreas enhances normally. No adrenal nodules. Kidneys demonstrate normal size and enhan cement, without hydronephrosis. Peritoneum and bowel: Bowel loops demonstrate normal wall thickness and caliber. No free fluid or a ir. Appendix is visualized and is within normal limits. Fecal stasis in the colon is seen. Small hia lynette hernia is also noted. There is no abscess collection. Sigmoid diverticulosis is seen, no CT evide nce of acute diverticulitis. Nodes and vessels: No retroperitoneal or mesenteric adenopathy by size criteria. Aorta and inferior vena cava are normal in size. Mild to moderate amount of atherosclerotic calcifications are noted t hroughout abdominal aorta. Miscellaneous: No ventral hernias. PELVIS: Genitourinary: Bladder wall thickness is normal. Miscellaneous: Left greater than right bilateral inguinal hernias are seen containing fat only. No in guinal lymphadenopathy. Bones: No suspicious bony lesions. No vertebral body compression fractures. Degenerative disc disea se throughout lower thoracic and lumbar spine is seen. IMPRESSION: 1. Patient is status post interval cholecystectomy with small amount of pneumobilia most consistent w ith postsurgical changes. 2. Normal appendix. No bowel obstruction. No free fluid or free air. No abscess collection. Small hia lynette hernia. Sigmoid diverticulosis without evidence of acute diverticulitis. No bowel obstruction. Mi ld to moderate constipation. 3. Mild bibasilar dependent atelectasis. Reviewed by: Jt Brunson MD on 08/28/2020 2:00 PM PDT Approved by: Jt Brunson MD on 08/28/2020 2:00 PM PDT Station ID: [id number]
[2020-08-28 14:05] LABS: B. PARAPERTUSSIS- RESP PCR PAN NOT DETECTED; B. PERTUSSIS- RESP PCR PANEL NOT DETECTED; C. PNEUMONIAE- RESP PCR PANEL NOT DETECTED; CORONAVIRUS 229E-RESP PCR NOT DETECTED; CORONAVIRUS HKU1-RESP PCR NOT DETECTED; CORONAVIRUS NL63-RESP PCR NOT DETECTED; CORONAVIRUS OC43-RESP PCR NOT DETECTED; HUMAN METAPNEUMOVIRUS NOT DETECTED; INFLUENZA A- RESP PCR PANEL NOT DETECTED; INFLUENZA B - RESP PCR PANEL NOT DETECTED; M. PNEUMONIAE- RESP PCR PANEL NOT DETECTED; PARAINFLUENZA VIRUS 1 NOT DETECTED; PARAINFLUENZA VIRUS 2 NOT DETECTED; PARAINFLUENZA VIRUS 3 NOT DETECTED; PARAINFLUENZA VIRUS 4 NOT DETECTED; RHINOVIRUS/ENTEROVIRUS NOT DETECTED; RSV- RESP PCR PANEL NOT DETECTED; SARS-CoV-2 -RESP PCR PANEL NOT DETECTED
[2020-08-28 14:57] VITALS: BP 142/76
--- NOTE | 2020-08-28 16:12 | Ultrasound Report ---
PROCEDURE: Abdomen Limited INDICATIONS: elevated lft's, h/o ccy TECHNIQUE: Real-time focused scanning was performed of the abdomen, with image documentation. COMPARISON: None FINDINGS: Liver is normal in size. Liver has homogeneous echotexture. Liver is diffusely echogenic. No focal he patic mass lesion. Gallbladder is surgically absent. Biliary tree is nondilated. Common bile duct measures 4.2 mm. Echogenic foci noted in the biliary anel e most compatible with pneumobilia. Head and body of the pancreas are sonographically normal. Tail of the pancreas is obscured by bowel g as and cannot be evaluated. Right kidney measures 12.1 cm in long axis. Right kidney is sonographically normal. The intrahepatic IVC is patent. IMPRESSION: 1. Status post cholecystectomy. 2. Biliary tree is nondilated. Pneumobilia noted likely related to postsurgical change versus infecti on with gas-forming organism. Recommend correlation with clinical and laboratory data. 3. Echogenic liver. Finding typically represents fatty infiltration, however the finding is not signi ficant other etiologies including hepatic cirrhosis can present similar appearance. Recommend correla tion with clinical and laboratory data. Reviewed by: Kanika Sullivan MD, PhD on 08/28/2020 4:11 PM PDT Approved by: Kanika Sullivan MD, PhD on 08/28/2020 4:11 PM PDT Station ID: [id number]
== END 2020-08-28 16:10 | disposition home or self-care (01) ==
LOC: ED 11:43
DX: R50.9 Fever, unspecified (principal); R74.8 Abnormal levels of other serum enzymes; Z20.822 Contact with and (suspected) exposure to COVID-19; E11.9 Type 2 diabetes mellitus without complications; Z79.4 Long term (current) use of insulin; Z90.49 Acquired absence of other specified parts of digestive tract; Z87.19 Personal history of other diseases of the digestive system
CPT/HCPCS: 0202U; 36415; 71045; 74177; 76705; 80053; 81003; 83605; 83690; 85025; 85610; 85730; 87040; 96361; 96374; 99284; A9270; Q9967; 81001; 87086

== ENCOUNTER 2020-09-28 07:53 | Emergency (ER) | payer OTHER ==
--- OUTSIDE RECORDS SUMMARY | 2020-09-28 07:57 | EXTERNAL MEDICAL SUMMARY RPT | Continuity of Care Document ---
:1955 Demographics Phone Unavailable Preferred Language Unknown Marital Status Unknown Yazidi Affiliation Unknown Race Unknown Ethnic Group Unknown Author Organization [place] Address [address] [phone] Phone Care Team Providers Name Role Phone Rajesh ENGLAND, Unavailable Unavailable Problems date description facility 20200813 COVID19 Testing [facility] ann 20200813 Infectious diarrhea Walk[facility] C ann 20200813 Infectious diarrheal disease Walk-In [facility] C [place] 20200813 Infectious gastroenteritis and colitis, [facility] C ann 20200813 Never smoker [facility] [place] 20200813 Tobacco smoking status NHIS [facility] [place] Medications date description facility 20200813 METFORMIN HCL TABS [facility] Joavny [id number] METFORMIN HCL TABS [facility] Jovany Results test status date ordered by attending specimen ysabel e T unknown 20200813 unknown unknown unknown COVID-19_REFERENCE_TES unknown 20200813 unknown unknown unknown T _2019NCoV_COVID-19_Lab unknown 20200813 unknown unknown unknown _Test_Result_Text_ facility observation status value reference units lab abnor mal line range code notes Walk-In T unknown NEGATIVE unknown COVID unknown u nknown Clinic -19 [facility] Jovany Walk-In COVID-19_REF unknown NEGATIVE unknown COVID unkn own unknown Clinic ERENCE_TEST 19.REF [facility] J[place]any Walk-In _2019NCoV_CO unknown NEGATIVE unknown _6659 unkn own unknown Clinic VID-19_Lab_Te [address]_Result_[place] [facility]_ [facility] J[place]any Vital Signs date measurement value source 20200813 BMI 24.50 kg/m2 [id number] BP_diastolic 85 mm[Hg] 67268529 BP_diastolic 90 mm[Hg] 39192992 BP_systolic 137 mm[Hg] 93371949 BP_systolic 150 mm[Hg] 12455174 heart_rate 71 /min 20200813 heart_rate 78 /min 20200813 heart_rate 90 /min 20200813 height_metric 185.42 cm 20200813 height_standard 73 in 20200813 respiration_rate 16 /min 20200813 temperature_metric 36.33 C 20200813 temperature_standard 97.4 F 20200813 weight_metric 83.91 kg 20200813 weight_standard 185 lb Social History date description facility [id number]
--- OUTSIDE RECORDS SUMMARY | 2020-09-28 08:05 | EXTERNAL MEDICAL SUMMARY RPT | Continuity of Care Document ---
:1955 Demographics Phone Unavailable Preferred Language Unknown Marital Status Unknown Orthodoxy Affiliation Unknown Race Unknown Ethnic Group Unknown Author Organization [place] Address [address] [phone] Phone Care Team Providers Name Role Phone Rajesh ENGLAND, Unavailable Unavailable Problems date description facility 20200813 COVID19 Testing [facility] C ann 20200813 Infectious diarrhea Walk-In Clinic [facility] C ann 20200813 Infectious diarrheal disease Walk-In C [facility] C [place] 20200813 Infectious gastroenteritis and colitis, [facility] C ann 20200813 Never smoker [facility] [place] 20200813 Tobacco smoking status NHIS [facility] C [place] Medications date description facility 20200813 METFORMIN HCL TABS [facility] Jovany [id number] METFORMIN HCL TABS [facility] [...] measurement value source 20200813 BMI 24.50 kg/m2 95479325 BP_diastolic 85 mm[Hg] 71888578 BP_diastolic 90 mm[Hg] 29462841 BP_systolic 137 mm[Hg] 26386547 BP_systolic 150 mm[Hg] 70031673 heart_rate 71 /min 20200813 heart_rate 78 /min 20200813 heart_rate 90 /min 20200813 height_metric 185.42 cm 20200813 height_standard 73 in 20200813 respiration_rate 16 /min 20200813 temperature_metric 36.33 C 20200813 temperature_standard 97.4 F 20200813 weight_metric 83.91 kg 20200813 weight_standard 185 lb Social History date description facility [id number]
--- NOTE | 2020-09-28 10:32 | ED Physician Documentation ---
History of Present Illness - Stated complaint Stated Complaint: ACCIDENTAL INSULIN OD - Chief complaint Chief Complaint: General - History obtained from History obtained from: Patient - Additonal information Additional information: 64-year-old man with Past medical history of IDDM diabetes (on NovoLog sliding scale bid and Lantus 27 units in the morning) presents s/p accidental overdose of novolog. This morning he accidentally took NovoLog 27 units rather than the Lantus. Took this at 7am and then immediately ate 10-12 1 mg glucose tablets right afterwards. On EMS arrival on scene he had an elevated fingerstick glucose and then on arrival to the emergency department it was in the 200s. Review of Systems Ten Systems: 10 systems reviewed and negative PD PAST MEDICAL HISTORY - Past Medical History Past Medical History: Yes Cardiovascular: High cholesterol Respiratory: None Neuro: None Endocrine/Autoimmune: Type 2 diabetes GI: Pancreatitis : None HEENT: Other Psych: None Musculoskeletal: Osteoarthritis Derm: None - Past Surgical History Past Surgical History: Yes General: Cholecystectomy, Other Ortho: Carpal Tunnel surgery Cardiovascular: Vascular surgery - Present Medications Home Medications: Ambulatory Orders Medication Instructions Recorded Confirmed Lisinopril 20 mg PO DAILY 10/23/12 08/28/20 metFORMIN [Glucophage] 2,000 mg PO BIDWM 10/23/12 08/18/18 Atorvastatin [Lipitor] 10 tab PO DAILY 02/26/18 08/28/20 Insulin Aspart [NovoLOG] 20 units SQ BID 02/26/18 08/28/20 Insulin Glargine [Lantus Solostar] 34 units SQ DAILY 02/26/18 08/28/20 Doxycycline Hyclate 100 mg PO BID #20 capsule 06/22/19 08/28/20 Empagliflozin [Jardiance] 25 mg PO DAILY 06/22/19 08/28/20 amLODIPine [Norvasc] 10 mg PO DAILY 06/22/19 08/28/20 - Allergies Allergies/Adverse Reactions: Allergies Allergy/AdvReac Type Severity Reaction Status Date / Time Penicillins Allergy Intermediate Rash Verified 09/28/20 08:16 - Social History Does the pt smoke?: No Smoking Status: Never smoker Does the pt drink ETOH?: No Does the pt have substance abuse?: No - Immunizations Immunizations are current?: Yes - POLST Patient has POLST: No PD ED PE NORMAL - Vitals Vital signs reviewed: Yes - General General: Alert and oriented X 3, No acute distress, Well developed/nourished - HEENT HEENT: Atraumatic, PERRL, EOMI - Neck Neck: Supple, no meningeal sign - Cardiac Cardiac: RRR - Respiratory Respiratory: No respiratory distress, Clear bilaterally - Abdomen Abdomen: Non tender, Non distended - Derm Derm: Normal color - Extremities Extremities: No deformity - Neuro Neuro: Alert and oriented X 3 - Psych Psych: Normal mood, Normal affect Results - Vitals Vitals: Vital Signs - 24 hr 09/28/20 09/28/20 09/28/20 07:55 09:45 12:01 Temperature 37 C 36.9 C 36.6 C Heart Rate 86 75 73 Respiratory 18 16 16 Rate Blood Pressure 206/86 H 145/77 H 129/77 O2 Saturation 99 96 96 Oxygen O2 Source Room air - Labs Labs: Laboratory Tests 09/28/20 09/28/20 09/28/20 08:03 11:13 12:05 POC Whole Bld Glucose 260 H 139 H 93 PD MEDICAL DECISION MAKING - ED course ED course: Patient was asymptomatic at the time of arrival, was given a large breakfast and he has remained asymptomatic during a 3 hour observation period. d/w poison control who state novolog will be completely metabolized out of the system at 5 hours. d/w patient who states that he would like to go home at noon. strict return precations given. patient will f/u with his pmd. Departure - Departure Disposition: 01 Home, Self Care Clinical Impression: Accidental overdose Condition: Good Instructions: ED Overdose Accidental Comments: You are seen in the emergency department after accidentally taking too much NovoLog. I called poison control and the NovoLog should be completely out of your System within 5 hours. You can continue your regular diabetes regimen Today and eat small healthy snacks. Follow-up with your primary doctor this we ek. Be careful in taking your medications in future. Discharge Date/Time: 09/28/20 12:17
[2020-09-28 12:02] VITALS: BP 129/77
== END 2020-09-28 12:17 | disposition home or self-care (01) ==
LOC: ED 07:53
DX: T38.3X1A Poisoning by insulin and oral hypoglycemic [antidiabetic] drugs, accidental (unintentional), initial encounter (principal); E11.9 Type 2 diabetes mellitus without complications; Z79.4 Long term (current) use of insulin
CPT/HCPCS: 36415; 99281

== ENCOUNTER 2020-11-16 02:43 | Emergency (ER) | payer OTHER ==
--- OUTSIDE RECORDS SUMMARY | 2020-11-16 02:47 | EXTERNAL MEDICAL SUMMARY RPT | Continuity of Care Document ---
:1955 Demographics Phone Unavailable Preferred Language Unknown Marital Status Unknown Alevism Affiliation Unknown Race Unknown Ethnic Group Unknown Author Organization [place] Address [address] [phone] Phone Allergies Encounters Medications Problems Results
--- NOTE | 2020-11-16 02:54 | ED Physician Documentation ---
PD HPI ABD PAIN - Stated complaint Stated Complaint: ABD PX - History obtained from History obtained from: Patient - History of Present Illness Timing - onset: Enter time (23:00) Timing - details: Abrupt onset Pain level now: 10 Quality: Pain Location: All over / everywhere Radiation: Other (No radiation) Improved by: Other (no amelioratong factors) Worsened by: Other (no exacerbating factors) Associated symptoms: No: Fever, Nausea, Vomiting, Diarrhea, Constipation Similar symptoms before: Has not had sx before - Additional information Additional information: Patient complains of sudden onset of severe abdominal pain, generalized but greatest in periumbilical area, at approximately 7 PM tonight while at home at rest watching TV. Denies nausea, denies vomiting. Has been evaluated in the emergency department in the past for abdominal pain, but the symptoms feel different from previous episodes. Previous episodes have been associated with gallstones complicated by pancreatitis. Patient strongly denies any alcohol use.He has had a cholecystectomy. Review of Systems Constitutional: reports: Reviewed and negative Cardiac: reports: Reviewed and negative Respiratory: reports: Reviewed and negative GI: reports: Abdominal Pain. denies: Nausea, Vomiting, Constipation, Diarrhea : denies: Dysuria, Frequency, Hematuria PD PAST MEDICAL HISTORY - Past Medical History Cardiovascular: High cholesterol Respiratory: None Neuro: None Endocrine/Autoimmune: Type 2 diabetes GI: Pancreatitis : None HEENT: Other Psych: None Musculoskeletal: Osteoarthritis Derm: None - Past Surgical History Past Surgical History: Yes General: Cholecystectomy, Other Ortho: Carpal Tunnel surgery Cardiovascular: Vascular surgery - Present Medications Home Medications: Ambulatory Orders Medication Instructions Recorded Confirmed Lisinopril 20 mg PO DAILY 10/23/12 08/28/20 metFORMIN [Glucophage] 2,000 mg PO BIDWM 10/23/12 08/18/18 Atorvastatin [Lipitor] 10 tab PO DAILY 02/26/18 08/28/20 Insulin Aspart [NovoLOG] 20 units SQ BID 02/26/18 08/28/20 Insulin Glargine [Lantus Solostar] 34 units SQ DAILY 02/26/18 08/28/20 Doxycycline Hyclate 100 mg PO BID #20 capsule 06/22/19 08/28/20 Empagliflozin [Jardiance] 25 mg PO DAILY 06/22/19 08/28/20 amLODIPine [Norvasc] 10 mg PO DAILY 06/22/19 08/28/20 Ondansetron Odt [Zofran] 4 mg TL Q6H PRN #10 tablet 11/16/20 oxyCODONE [Roxicodone] 5 mg PO Q4-6H PRN #14 tablet 11/16/20 - Allergies Allergies/Adverse Reactions: Allergies Allergy/AdvReac Type Severity Reaction Status Date / Time Penicillins Allergy Intermediate Rash Verified 09/28/20 08:16 - Social History Does the pt smoke?: No Smoking Status: Never smoker Does the pt drink ETOH?: No Does the pt have substance abuse?: No - Immunizations Immunizations are current?: Yes - POLST Patient has POLST: No PD ED PE NORMAL - Vitals Vital signs reviewed: Yes - General General: Alert and oriented X 3, Well developed/nourished, Other (severe painful distress) - Neck Neck: Supple, no meningeal sign - Cardiac Cardiac: RRR, No murmur - Respiratory Respiratory: No respiratory distress, Clear bilaterally - Abdomen Abdomen: Normal bowel sounds, Soft, Non distended, Other (TTP periumbilicus) - Back Back: No CVA TTP - Derm Derm: Normal color, Warm and dry, No rash - Extremities Extremities: No edema Results - Vitals Vitals: Oxygen O2 Source Room air - Labs Labs: Laboratory Tests 11/16/20 11/16/20 03:20 03:20 WBC 11.2 H RBC 4.90 Hgb 14.8 Hct 45.4 MCV 92.7 MCH 30.2 MCHC 32.6 RDW 13.2 Plt Count 235 MPV 9.8 Neut # (Auto) 8.2 H Lymph # (Auto) 2.1 [place] # (Auto) 0.8 Eos # (Auto) 0.1 Baso # (Auto) 0.0 Absolute Nucleated RBC 0.00 Nucleated RBC % 0.0 Sodium 140 Potassium 3.7 Chloride 103 Carbon Dioxide 28 Anion Gap 9.0 BUN 23 H Creatinine 1.1 Estimated GFR (MDRD) 67 L Glucose 173 H Calcium 9.0 Total Bilirubin 1.3 H AST 575 H ALT 297 H Alkaline Phosphatase 185 H Total Protein 7.1 Albumin 4.0 Globulin 3.1 Albumin/Globulin Ratio 1.3 Amylase 80 Lipase 46 - Rads (name of study) CT A/P with IV contrast Radiology: Prelim report reviewed, See rad report PD MEDICAL DECISION MAKING - ED course Complexity details: reviewed results, re-evaluated patient, considered differential, d/w patient ED course: given zofran (not nauseas but to prophylaxis against possible nausea from dilaudid) and dilaudid with excellent relief of symptoms. patient says he actually had pain relief when he vomited immediately before being given the medications. he remained comfortable for remainder of ED stay. elevated LFTs with mild increase in AST, decrease in ALT compared to previous (few months ago). I reviewed these results with him and instructed him to return if worse, follow up with his primary care provider for further testing for his abnormal LFTs if necessary per the discretion of his doctor. Departure - Departure Disposition: Home, Self Care Clinical Impression: Abdominal pain Qualifiers: Abdominal location: generalized Qualified Code(s): R10.84 - Generalized abdominal pain Condition: Good Instructions: ED Abdominal Pain Unkn Cause Prescriptions: oxyCODONE [Roxicodone] 5 mg PO Q4-6H PRN #14 tablet PRN Reason: Pain Ondansetron Odt [Zofran] 4 mg TL Q6H PRN #10 tablet PRN Reason: Nausea / Vomiting Comments: Follow up with your primary care provider; more testing might be necessary, both for the elevated liver function tests as well as for the cause of your abdominal pain. The elevated liver function tests were noted on previous testing (August 2020), and I suspect this is not related to your abdominal pain. Discharge Date/Time: 11/16/20 06:15
--- OUTSIDE RECORDS SUMMARY | 2020-11-16 02:58 | EXTERNAL MEDICAL SUMMARY RPT | Continuity of Care Document ---
:1955 Demographics Phone Unavailable Preferred Language Unknown Marital Status Unknown Moravian Affiliation Unknown Race Unknown Ethnic Group Unknown Author Organization [place] Address [address] [phone] Phone Allergies Encounters Medications Problems Results
[2020-11-16] MEDS ORDERED: SODIUM CHLORIDE 0.9% 1,000 ML IV STA (03:10)
[2020-11-16] MEDS ORDERED: ONDANSETRON 4 MG/2 ML VIAL IVP STA (03:10)
[2020-11-16] MEDS ORDERED: HYDROmorphone 1 MG/ML CARPUJECT IVP STA (03:10)
[2020-11-16] MEDS ORDERED: IOVERSOL 320 100 ML VIAL IVP ONE ×2 (03:19→04:14)
[2020-11-16 03:27] LABS: BASOPHILS % (AUTO) 0.4 %; EOSINOPHILS # (AUTO) 0.1 10^3/uL (0.0-0.7); EOSINOPHILS % (AUTO) 0.5 %; HCT - HEMATOCRIT 45.4 % (42.0-52.0); HGB - HEMOGLOBIN 14.8 g/dL (14.0-18.0); LYMPHOCYTES # (AUTO) 2.1 10^3/uL (1.5-3.5); LYMPHOCYTES % (AUTO) 18.5 %; MEAN CORPUSCULAR HEMOGLOBIN 30.2 pg (27.0-31.0); MEAN CORPUSCULAR HGB CONC 32.6 g/dL (32.0-36.0); MEAN CORPUSCULAR VOLUME 92.7 fL (80.0-94.0); MEAN PLATELET VOLUME 9.8 fL (7.4-11.4); MONOCYTES # (AUTO) 0.8 10^3/uL (0.0-1.0); NEUTROPHILS # (AUTO) 8.2 10^3/uL (1.5-6.6); NEUTROPHILS % (AUTO) 73.1 %; PLT - PLATELET COUNT 235 10^3/uL (130-450); RED CELL DISTRIBUTION WIDTH 13.2 % (12.0-15.0); WHITE BLOOD COUNT 11.2 x10^3/uL (4.8-10.8)
[2020-11-16 03:45] LABS: ALBUMIN/GLOBULIN RATIO 1.3 (1.0-2.2); BILIRUBIN,TOTAL 1.3 mg/dL (0.2-1.0); CREATININE 1.1 mg/dL (0.6-1.2); POTASSIUM 3.7 mmol/L (3.5-5.0); TOTAL PROTEIN 7.1 g/dL (6.7-8.2)
[2020-11-16 06:03] VITALS: BP 148/98
--- NOTE | 2020-11-16 08:07 | CT Report ---
PROCEDURE: Abdomen/Pelvis W INDICATIONS: abdominal pain CONTRAST: IV CONTRAST: Optiray 320 ml: 100 PO CONTRAST: *NO PO CONTRAST TECHNIQUE: After the administration of intravenous contrast, 5 mm thick sections acquired from the diaphragms to the symphysis. 5 mm thick coronal and sagittal reformats were acquired. For radiation dose reducti on, the following was used: automated exposure control, adjustment of mA and/or kV according to john paul ent size. COMPARISON: Dominant and pelvic CT with contrast, 08/28/2020. FINDINGS: Image quality: Excellent. ABDOMEN: Lung bases: Right basilar infiltrate or atelectasis. Heart size is normal. Small hiatal hernia. Solid organs: Mild hepatic steatosis. Liver and spleen are normal in size and enhancement. Gallblad jadiel is surgically absent. There is pneumobilia. Biliary system is non dilated. Pancreas enhances no rmally. No adrenal nodules. Kidneys demonstrate normal size and enhancement, without hydronephrosis . Peritoneum and bowel: Bowel loops demonstrate normal wall thickness and caliber. No free fluid or a ir. Nodes and vessels: No retroperitoneal or mesenteric adenopathy by size criteria. Aorta and inferior vena cava are normal in size. Miscellaneous: No ventral hernias. PELVIS: Genitourinary: Bladder wall thickness is normal. There are multiple pelvic phleboliths. Miscellaneous: No inguinal adenopathy. Small fat-containing inguinal hernias bilaterally. Bones: No suspicious bony lesions. No vertebral body compression fractures. Mild levoscoliosis. Se julianna degenerative changes in lumbar spine. IMPRESSION: 1. No acute abnormalities in abdomen or pelvis. 2. Cholecystectomy and pneumobilia. 3. Small hiatal hernia. 4. Right basilar atelectasis. No significant discrepancy with the preliminary interpretation. Reviewed by: Yong Solis MD on 11/16/2020 8:05 AM PDT Approved by: Yong Solis MD on 11/16/2020 8:05 AM PDT Station ID: [id number]
== END 2020-11-16 06:15 | disposition home or self-care (01) ==
LOC: ED 02:43
DX: R10.84 Generalized abdominal pain (principal); R74.8 Abnormal levels of other serum enzymes; Z90.49 Acquired absence of other specified parts of digestive tract; E11.9 Type 2 diabetes mellitus without complications; Z79.4 Long term (current) use of insulin
CPT/HCPCS: 36415; 74177; 80053; 82150; 83690; 85025; 96361; 96374; 96375; 99284; J1170; Q9967

== ENCOUNTER 2022-06-28 08:00 | Outpatient (CLI) | payer MEDICARE | END 2022-06-28 23:59 | disposition home or self-care (01) | LOC: LAB 08:00 | PROVIDERS: ATTEND Physician Assistant | DX: S80.822A Blister (nonthermal), left lower leg, initial encounter (principal) | CPT/HCPCS: 87070; 87181; 87205 ==

== ENCOUNTER 2022-08-20 20:12 | Emergency (ER) | payer MEDICARE, OTHER ==
--- OUTSIDE RECORDS SUMMARY | 2022-08-20 20:31 | EXTERNAL MEDICAL SUMMARY RPT | Continuity of Care Document ---
:1955 Author Organization [facility] Address [address] [place] [address] Phone Care Team Providers Name Role Phone Unavailable Unavailable Unavailable Chandni Chinchilla Unavailable Unavailable Allergies No information. Encounters No information. Functional Status No information. Immunizations No information. Medications date description facility 2022-08-12 00:00 insulin glargine [facility] Jeaneth juarez 2022-06-28 00:00 mupirocin [facility] ann 2022-08-12 00:00 mupirocin [facility] Jeaneth juarez 2022-08-14 00:00 mupirocin [facility] ann 2022-08-12 00:00 finasteride [facility] ann 2022-08-14 00:00 finasteride [facility] ann 2022-08-12 00:00 insulin aspart u-100 [facility] Jeaneth maeann 2022-08-12 00:00 bupropion hcl [facility] Jeaneth juarez 2022-08-14 00:00 bupropion hcl [facility] Jeaneth juarez 2022-08-09 00:00 lisinopril [facility] Jeaneth juarez 2022-08-12 00:00 lisinopril [facility] Jeaneth juarez 2022-08-14 00:00 lisinopril [facility] Jeaneth juarez 2022-08-12 00:00 lisinopril [facility] Jeaneth juarez 2022-08-14 00:00 lisinopril [facility] Jeaneth maeann 2022-08-12 00:00 empagliflozin-metformin [facility] Jeaneth juarez 2022-08-14 00:00 empagliflozin-metformin [facility] C ann 2022-06-28 00:00 doxycycline monohydrate [facility] Jeaneth maeann 2022-07-15 00:00 doxycycline monohydrate [facility] Jeaneth maeann 2022-06-28 00:00 mupirocin [facility] C ann 2022-08-12 00:00 mupirocin [facility] Jeaneth juarez 2022-08-14 00:00 mupirocin [facility] Jeaneth juarez 2022-08-12 00:00 tamsulosin [facility] Jeaneth juarez 2022-08-14 00:00 tamsulosin [facility] Jeaneth juarez 2022-06-28 00:00 doxycycline monohydrate [facility] Jeaneth juarez 2022-07-15 00:00 doxycycline monohydrate [facility] Jeaneth juarez 2022-08-12 00:00 insulin aspart u-100 [facility] [address] [facility] Services Jeaneth juarez 2022-08-12 00:00 empagliflozin-metformin [facility] Jeaneth juarez 2022-08-14 00:00 empagliflozin-metformin [facility] Jeaneth juarez 2022-08-12 00:00 insulin glargine [facility] Jeaneth juarez 2022-08-12 00:00 empagliflozin-metformin [facility] Jeaneth juarez 2022-08-14 00:00 empagliflozin-metformin [facility] Jeaneth juarez 2022-07-15 00:00 benzonatate [facility] Jeaneth juarez 2022-08-12 00:00 lisinopril [facility] [place] [facility] Jeaneth juarez 2022-08-14 00:00 lisinopril [facility] C ann 2022-08-12 00:00 omeprazole [facility] C ann 2022-08-14 00:00 omeprazole [facility] C ann 2022-08-12 00:00 insulin aspart u-100 [facility] Jeaneth juarez 2022-08-12 00:00 bupropion hcl [facility] C ann 2022-08-14 00:00 bupropion hcl [facility] C ann 2022-06-28 00:00 doxycycline monohydrate [facility] Jeaneth juarez 2022-07-15 00:00 doxycycline monohydrate [facility] Jeaneth juarez 2022-08-12 00:00 insulin aspart u-100 [facility] Pr [facility] Jeaneth juarez 2022-08-12 00:00 insulin glargine [facility] Jeaneth juarez 2022-08-12 00:00 finasteride [facility] Jeaneth juarez 2022-08-14 00:00 finasteride [facility] Jenaeth juarez 2022-08-12 00:00 pioglitazone [facility] Jeaneth juarez 2022-08-14 00:00 pioglitazone [facility] Jeaneth juarez 2022-07-15 00:00 benzonatate [facility] Jeaneth juarez 2022-08-12 00:00 empagliflozin-metformin [facility] Jeaneth juarez 2022-08-14 00:00 empagliflozin-metformin [facility] Jeaneth juarez 2022-08-09 00:00 lisinopril [facility] Jeaneth juarez 2022-08-12 00:00 lisinopril [facility] Jeaneth juarez 2022-08-14 00:00 lisinopril [facility] C ann 2022-08-12 00:00 lisinopril [facility] C ann 2022-08-14 00:00 lisinopril [facility] C ann 2022-06-28 00:00 mupirocin [facility] C ann 2022-08-12 00:00 mupirocin [facility] C ann 2022-08-14 00:00 mupirocin [facility] C ann 2022-07-15 00:00 DEXAMETHASONE SODIUM PHOSPHATE [facility] C ann 2022-08-12 00:00 finasteride [facility] Jeaneth juarez 2022-08-14 00:00 finasteride [facility] Jeaneth juarez 2022-08-12 00:00 pioglitazone [facility] C ann 2022-08-14 00:00 pioglitazone [facility] Jeaneth juarez 2022-08-09 00:00 lisinopril [facility] Jeaneth juarez 2022-08-12 00:00 lisinopril [facility] Jeaneth juarez 2022-08-14 00:00 lisinopril [facility] Jeaneth juarez 2022-08-09 00:00 lisinopril [facility] C ann 2022-08-12 00:00 lisinopril [facility] Jeaneth juarez 2022-08-14 00:00 lisinopril [facility] C ann 2022-08-12 00:00 lisinopril [facility] C ann 2022-08-14 00:00 lisinopril [facility] C ann 2022-08-12 00:00 atorvastatin [facility] C ann 2022-08-14 00:00 atorvastatin [facility] C ann 2022-07-15 00:00 benzonatate [facility] C ann 2022-07-15 00:00 albuterol sulfate [facility] C ann 2022-07-15 00:00 albuterol sulfate [facility] C ann 2022-08-12 00:00 atorvastatin [facility] C ann 2022-08-14 00:00 atorvastatin [facility] C ann 2022-08-12 00:00 omeprazole [facility] C ann 2022-08-14 00:00 omeprazole [facility] Jeaneth juarez 2022-06-28 00:00 doxycycline monohydrate [facility] C ann 2022-07-15 00:00 doxycycline monohydrate [facility] C ann 2022-08-12 00:00 finasteride [facility] Jeaneth juarez 2022-08-14 00:00 finasteride [facility] Jeaneth juarez 2022-08-12 00:00 tamsulosin [facility] Jeaneth juarez 2022-08-14 00:00 tamsulosin [facility] C ann 2022-08-12 00:00 bupropion hcl [facility] C ann 2022-08-14 00:00 bupropion hcl [facility] Jeaneth juarez 2022-08-12 00:00 omeprazole [facility] C ann 2022-08-14 00:00 omeprazole [facility] Jeaneth juarez 2022-08-12 00:00 pioglitazone [facility] C ann 2022-08-14 00:00 pioglitazone [facility] C ann 2022-08-12 00:00 atorvastatin [facility] C ann 2022-08-14 00:00 atorvastatin [facility] C ann 2022-08-12 00:00 pioglitazone [facility] Jeaneth juarez 2022-08-14 00:00 pioglitazone [facility] C ann 2022-08-12 00:00 atorvastatin [facility] C ann 2022-08-14 00:00 atorvastatin [facility] C ann 2022-08-12 00:00 tamsulosin [facility] Jeaneth juarez 2022-08-14 00:00 tamsulosin [facility] Jeaneth juarez 2022-08-12 00:00 omeprazole [facility] Jeaneth juarez 2022-08-14 00:00 omeprazole [facility] Jeaneth juarez 2022-07-15 00:00 albuterol sulfate [facility] Jeaneth juarez 2022-07-15 00:00 benzonatate [facility] Jeaneth juarez 2022-07-15 00:00 albuterol sulfate [facility] Jeaneth juarez 2022-08-12 00:00 insulin glargine [facility] C ann 2022-08-12 00:00 tamsulosin [facility] Jeaneth juarez 2022-08-14 00:00 tamsulosin [facility] C ann 2022-06-28 00:00 mupirocin [facility] Jeaneth juarez 2022-08-12 00:00 mupirocin [facility] Jeaneth juarez 2022-08-14 00:00 mupirocin [facility] C ann 2022-08-12 00:00 bupropion hcl [facility] C ann 2022-08-14 00:00 bupropion hcl [facility] C ann 2022-06-28 00:00 insulin glargine [facility] C ann 2022-06-29 00:00 insulin glargine [facility] C ann 2022-07-01 00:00 insulin glargine [facility] C ann 2022-07-15 00:00 insulin glargine [facility] C ann 2022-07-16 00:00 insulin glargine [facility] C ann 2022-08-09 00:00 insulin glargine [facility] C ann 2022-08-12 00:00 insulin glargine [facility] C ann 2022-08-14 00:00 insulin glargine [facility] C ann 2022-06-28 00:00 insulin aspart u-100 [facility] C ann 2022-06-29 00:00 insulin aspart u-100 [facility] C ann 2022-07-01 00:00 insulin aspart u-100 [facility] C ann 2022-07-15 00:00 insulin aspart u-100 [facility] C ann 2022-07-16 00:00 insulin aspart u-100 [facility] C ann 2022-08-09 00:00 insulin aspart u-100 [facility] C ann 2022-08-12 00:00 insulin aspart u-100 [facility] C ann 2022-08-14 00:00 insulin aspart u-100 [facility] Jeaneth juarez 2022-06-28 00:00 insulin aspart u-100 [facility] Jeaneth juarez 2022-06-29 00:00 insulin aspart u-100 [facility] Jeaneth juarez 2022-07-01 00:00 insulin aspart u-100 [facility] Jeaneth juarez 2022-07-15 00:00 insulin aspart u-100 [facility] Jeaneth juarez 2022-07-16 00:00 insulin aspart u-100 [facility] Jeaneth juarez 2022-08-09 00:00 insulin aspart u-100 [facility] Jeaneth juarez 2022-08-12 00:00 insulin aspart u-100 [facility] Jeaneth juarez 2022-08-14 00:00 insulin aspart u-100 [facility] Jeaneth ann Problems date description facility 2022-06-28 00:00 Blister of lower leg without Walk-In [facility] Primary Care & infection Ancillary Services [facility] 2022-06-28 00:00 Blister of hip, thigh, leg, and [facility] 2022-06-28 00:00 Blister (nonthermal), left lower [facility] Primary Care & leg, initial encounter Ancillary Service s Jovany 2022-07-15 00:00 Chronic sinusitis [facility] Jeaneth juarez 2022-07-15 00:00 Unspecified sinusitis (chronic) [facility] Jeaneth juarez 2022-07-15 00:00 Chronic sinusitis, unspecified [facility] Jeaneth juarez 2022-07-15 00:00 Wheezing [facility] Jeaneth juarez 2022-08-12 00:00 Thyroid disorder screening Walk-In [facility] Primary Care & Ancillary Services Jeaneth juraez 2022-08-12 00:00 Diabetes mellitus screening Walk-In [facility] Primary [facility] & Anc[facility] Services Jeaneth juarez 2022-08-12 00:00 Anemia screening [facility] Jeaneth juarez 2022-08-12 00:00 Other and unspecified Walk-In [facility] & hyperlipidemia Ancillary Services Jeaneth juarez 2022-08-12 00:00 Lower urinary tract symptoms due to [facility] Primary Care & benign prostatic hypertrophy Ancillary S romario Manzo 2022-08-12 00:00 Depressive disorder, not elsewhere [facility] & classified [facility] Services Jeaneth juarez 2022-08-12 00:00 Depressive disorder Walk-In Clinic [facility] Care & Ancillary Services Jeaneth juarez 2022-08-12 00:00 Hypertensive disorder [facility] Services Jeaneth juarez 2022-08-12 00:00 Unspecified essential hypertension [facility] Jeaneth juarez 2022-08-12 00:00 History of clinical finding in [facility] Primary Care & subject Ancillary Services Jeaneth juarez 2022-08-12 00:00 Procedure carried out on subject [facility] Services Jeaneth juarez 2022-08-12 00:00 Screening for malignant neoplasm of [facility] Primary Care & prostate Ancillary Services Jeaneth juarez 2022-08-12 00:00 Hip pain [facility] Jeaneth juarez 2022-08-12 00:00 Hyperlipidemia [facility] Jeaneth juarez 2022-08-12 00:00 Hypertrophy (benign) of prostate [facility] n [facility] Primary Care & with urinary obstruction and other Ancil selene Services Jovany lower urinary tract symptoms (LUTS) 2022-08-12 00:00 Impotence of organic origin Walk-In [facility] Primary Care & Ancillary Services Jeaneth juarez 2022-08-12 00:00 Pain in joint involving pelvic Walk-In Clinic Primary Care & region and thigh Ancillary Services Jeaneth juarez 2022-08-12 00:00 Diabetes mellitus [facility] Jeaneth juarez 2022-08-12 00:00 Erectile dysfunction [facility] Pr [facility] & Anc[facility] Services Jeaneth juarez 2022-08-12 00:00 Type 2 diabetes mellitus without [facility]- In [facility] Primary Care & complications Ancillary Services Jeaneth juarez 2022-08-12 00:00 Hyperlipidemia, unspecified [facility] Care & Ancillary Services Jeaneth juarez 2022-08-12 00:00 Major depressive disorder, single Walk -In [facility] Primary Care & episode, unspecified Ancillary Services [place] 2022-08-12 00:00 Essential (primary) hypertension [facility]- [facility] & Ancillary Services Jeaneth juarez 2022-08-12 00:00 Pain in left hip [facility] Jeaneth juarez 2022-08-12 00:00 Benign prostatic hyperplasia with Walk -In Clinic Primary Care & lower urinary tract symptoms Ancillary S jo-annvices Jovany 2022-08-12 00:00 Male erectile dysfunction, [facility] & unspecified Ancillary Services Jeaneth juarez 2022-08-12 00:00 Personal history of tobacco use [facility] & Ancillary Services Jeaneth juarez 2022-08-12 00:00 Screening for malignant neoplasms Walk -[facility] Primary Care & of prostate Ancillary Services Jeaneth juarez 2022-08-12 00:00 Screening for thyroid disorders [facility] & Ancillary Services Jeaneth juarez 2022-08-12 00:00 Screening for diabetes mellitus [facility] & Ancillary Services Jeaneth juarez 2022-08-12 00:00 Screening for lipoid disorders [facility] & Ancillary Services Jeaneth juarez 2022-08-12 00:00 Screening for other and unspecified [facility] Primary Care & endocrine, nutritional, metabolic, Ancil selene Services Jovany and immunity disorders 2022-08-12 00:00 Screening for other and unspecified [facility] Primary Care & deficiency anemia Ancillary Services Jeaneth juarez 2022-08-12 00:00 Encounter for screening for [facility] Primary Care & malignant neoplasm of prostate Ancillary Services [place] 2022-08-12 00:00 Encounter for screening for diseases [facility]In [facility] Primary Care & of the blood and blood-forming Ancillary Services J[facility]any organs and certain disorders involving the immune mechanism 2022-08-12 00:00 Encounter for screening for [facility] Primary Care & diabetes mellitus Ancillary Services Jeaneth juarez 2022-08-12 00:00 Encounter for screening for lipoid [facility] Primary Care & disorders Ancillary Services Jeaenth rolette 2022-08-12 00:00 Encounter for screening for other Walk -In [facility] Primary Care & metabolic disorders Ancillary Services C rolette 2022-08-12 00:00 Encounter for screening for other Walk -In [facility] Primary Care & suspected endocrine disorder Ancillary S romario Jovany 2022-08-12 00:00 Personal history of nicotine [facility] Primary Care & dependence Ancillary Services Jeaneth juarez Procedures date description facility 2022-06-28 00:00 Visit Code Hold [facility] Services [facility] 2022-07-15 00:00 Visit Code Hold [facility] C rolette 2022-08-12 00:00 Visit Code Hold [facility] 2022-06-28 00:00 CULT WOUND AEROBIC W/GR STAIN Walk[facility]In [facility] Primary Care & Ancillary Services [facility] 2022-07-15 00:00 COVID, FLU A+B Antigen (In Clinic Walk -In Clinic Primary Care & Free Test) Ancillary Services Jeaneth maeann Results/Labs No information. Social History date description facility 2022-06-28 00:00 Never smoker Walk-In [facility] Care & [facility] Services [place] 2022-07-15 00:00 Former smoker [facility] [place] 2022-08-12 00:00 Former smoker [facility] [place] Vital Signs date measurement value units 2022-06-28 00:00 BMI 25.69 kg/m2 2022-06-28 00:00 BP_diastolic 80 mmHg 2022-06-28 00:00 BP_systolic 145 mmHg 2022-06-28 00:00 heart_rate 89 /min 2022-06-28 00:00 height_metric 185.42 cm 2022-06-28 00:00 height_standard 73 in 2022-06-28 00:00 respiration_rate 16 /min 2022-06-28 00:00 temperature_metric 36.11 C 2022-06-28 00:00 temperature_standard 97 F 2022-06-28 00:00 weight_metric 88 kg 2022-06-28 00:00 weight_standard 194 lb 2022-07-15 00:00 BMI 25.16 kg/m2 2022-07-15 00:00 BP_diastolic 85 mmHg 2022-07-15 00:00 BP_systolic 164 mmHg 2022-07-15 00:00 heart_rate 75 /min 2022-07-15 00:00 height_metric 185.42 cm 2022-07-15 00:00 height_standard 73 in 2022-07-15 00:00 respiration_rate 16 /min 2022-07-15 00:00 temperature_metric 36.5 C 2022-07-15 00:00 temperature_standard 97.7 F 2022-07-15 00:00 weight_metric 86.18 kg 2022-07-15 00:00 weight_standard 190 lb 2022-08-12 00:00 BMI 25.29 kg/m2 2022-08-12 00:00 BP_diastolic 78 mmHg 2022-08-12 00:00 BP_systolic 133 mmHg 2022-08-12 00:00 heart_rate 88 /min 2022-08-12 00:00 height_metric 185.42 cm 2022-08-12 00:00 height_standard 73 in 2022-08-12 00:00 respiration_rate 18 /min 2022-08-12 00:00 temperature_metric 36.92 C 2022-08-12 00:00 temperature_standard 98.45 F 2022-08-12 00:00 weight_metric 86.64 kg 2022-08-12 00:00 weight_standard 191 lb
[2022-08-20 20:48] LABS: ALBUMIN 3.9 g/dL (3.2-5.5); ALBUMIN/GLOBULIN RATIO 1.3 (1.0-2.2); BILIRUBIN,TOTAL 0.5 mg/dL (0.2-1.0); CALCIUM 8.6 mg/dL (8.5-10.3); CREATININE 1.1 mg/dL (0.6-1.2); TOTAL PROTEIN 6.8 g/dL (6.7-8.2)
[2022-08-20 20:49] LABS: BASOPHILS % (AUTO) 0.5 %; EOSINOPHILS # (AUTO) 0.2 10^3/uL (0.0-0.7); EOSINOPHILS % (AUTO) 1.8 %; HGB - HEMOGLOBIN 14.7 g/dL (14.0-18.0); LYMPHOCYTES # (AUTO) 2.8 10^3/uL (1.5-3.5); LYMPHOCYTES % (AUTO) 33.3 %; MEAN CORPUSCULAR HEMOGLOBIN 30.2 pg (27.0-31.0); MEAN CORPUSCULAR HGB CONC 33.4 g/dL (32.0-36.0); MEAN CORPUSCULAR VOLUME 90.5 fL (80.0-94.0); MEAN PLATELET VOLUME 9.9 fL (7.4-11.4); MONOCYTES # (AUTO) 0.8 10^3/uL (0.0-1.0); MONOCYTES % (AUTO) 9.5 %; NEUTROPHILS # (AUTO) 4.6 10^3/uL (1.5-6.6); NEUTROPHILS % (AUTO) 54.5 %; PLT - PLATELET COUNT 250 10^3/uL (130-450); RED BLOOD COUNT 4.86 10^6/uL (4.70-6.10); RED CELL DISTRIBUTION WIDTH 13.7 % (12.0-15.0); WHITE BLOOD COUNT 8.4 x10^3/uL (4.8-10.8)
[2022-08-20] MEDS ORDERED: KETOROLAC 30 MG/ML VIAL IM STA (20:55)
[2022-08-20] MEDS: KETOROLAC 15 MG/ML VIAL IVP STA (21:02)
[2022-08-20 21:03] LABS: BILIRUBIN,URINE NEGATIVE (NEGATIVE); GLUCOSE, URINE (UA) 500 mg/dL (NEGATIVE); KETONES,URINE (UA) NEGATIVE (NEGATIVE); LEUKOCYTE ESTERASE, URINE NEGATIVE (NEGATIVE); NITRITE,URINE NEGATIVE (NEGATIVE); OCCULT BLOOD,URINE NEGATIVE (NEGATIVE); PH,URINE 5.5 PH (5.0-7.5); PROTEIN,URINE NEGATIVE (NEGATIVE); UROBILINOGEN,URINE 0.2 (NORMAL) E.U./dL (NORMAL)
[2022-08-20 21:08] LABS: CLARITY,URINE CLEAR (CLEAR)
[2022-08-20] MEDS: SODIUM CHLORIDE 0.9% 1,000 ML IV STA (21:39)
--- NOTE | 2022-08-20 21:39 | ED Physician Documentation ---
History of Present Illness - Stated complaint Stated Complaint: LT SIDE PX - Chief complaint Chief Complaint: Abd Pain - History obtained from History obtained from: Patient - Additonal information Additional information: 66-year-old male with past medical history of diabetes, high blood pressure, past surgical history of cholecystectomy, presents with left flank pain for the past 3 days, gradual in onset continuous, better with movement,Worse with lying down.Patient has had decreased appetite recently and has been feeling tired. Denies urinary symptoms, fever, nausea, diarrhea or constipation PD PAST MEDICAL HISTORY - Past Medical History Cardiovascular: High cholesterol Respiratory: None Neuro: None Endocrine/Autoimmune: Type 2 diabetes GI: Pancreatitis : None HEENT: Other Psych: None Musculoskeletal: Osteoarthritis Derm: None - Past Surgical History Past Surgical History: Yes General: Cholecystectomy, Other Ortho: Carpal Tunnel surgery Cardiovascular: Vascular surgery - Present Medications Home Medications: Ambulatory Orders Medication Instructions Recorded Confirmed Lisinopril 20 mg PO DAILY 10/23/12 08/28/20 metFORMIN [Glucophage] 2,000 mg PO BIDWM 10/23/12 08/18/18 Atorvastatin [Lipitor] 10 tab PO DAILY 02/26/18 08/28/20 Insulin Aspart [NovoLOG] 20 units SQ BID 02/26/18 08/28/20 Insulin Glargine [Lantus Solostar] 34 units SQ DAILY 02/26/18 08/28/20 Doxycycline Hyclate 100 mg PO BID #20 capsule 06/22/19 08/28/20 Empagliflozin [Jardiance] 25 mg PO DAILY 06/22/19 08/28/20 amLODIPine [Norvasc] 10 mg PO DAILY 06/22/19 08/28/20 Ondansetron Odt [Zofran] 4 mg TL Q6H PRN #10 tablet 11/16/20 oxyCODONE [Roxicodone] 5 mg PO Q4-6H PRN #14 tablet 11/16/20 - Allergies Allergies/Adverse Reactions: Allergies Allergy/AdvReac Type Severity Reaction Status Date / Time Penicillins Allergy Intermediate Rash Verified 08/20/22 20:17 - Social History Does the pt smoke?: No Smoking Status: Never smoker Does the pt drink ETOH?: No Does the pt have substance abuse?: No - Immunizations Immunizations are current?: Yes - POLST Patient has POLST: No PD ED PE NORMAL - Vitals Vital signs reviewed: Yes - General General: Alert and oriented X 3, No acute distress, Well developed/nourished - HEENT HEENT: Atraumatic, PERRL, EOMI - Neck Neck: Supple, no meningeal sign - Cardiac Cardiac: RRR - Respiratory Respiratory: No respiratory distress, Clear bilaterally - Abdomen Abdomen: Non tender, Non distended - Back Back: No CVA TTP Results - Vitals Vitals: Vital Signs - 24 hr 08/20/22 20:17 Temperature 36.5 C Heart Rate 74 Respiratory 16 Rate Blood Pressure 140/68 H O2 Saturation 97 Oxygen O2 Source Room air - Labs Labs: Laboratory Tests 08/20/22 08/20/22 08/20/22 20:28 20:28 20:56 WBC 8.4 RBC 4.86 Hgb 14.7 Hct 44.0 MCV 90.5 MCH 30.2 MCHC 33.4 RDW 13.7 Plt Count 250 MPV 9.9 Neut # (Auto) 4.6 Lymph # (Auto) 2.8 [place] # (Auto) 0.8 Eos # (Auto) 0.2 Baso # (Auto) 0.0 Absolute Nucleated RBC 0.00 Nucleated RBC % 0.0 Sodium 136 Potassium 4.0 Chloride 101 Carbon Dioxide 27 Anion Gap 8.0 BUN 23 H Creatinine 1.1 Estimated GFR (MDRD) 67 L Glucose 133 H Calcium 8.6 Total Bilirubin 0.5 AST 21 ALT 20 Alkaline Phosphatase 77 Total Protein 6.8 Albumin 3.9 Globulin 2.9 Albumin/Globulin Ratio 1.3 Lipase 51 Urine Color YELLOW Urine Clarity CLEAR Urine pH 5.5 Ur Specific [place] 1.025 Urine Protein NEGATIVE Urine Glucose (UA) 500 H Urine Ketones NEGATIVE Urine Occult Blood NEGATIVE Urine Nitrite NEGATIVE Urine Bilirubin NEGATIVE Urine Urobilinogen 0.2 (NORMAL) Ur Leukocyte Esterase NEGATIVE Ur Microscopic Review NOT INDICATED Urine Culture Comments NOT INDICATED PD Medical Decision Making - ED course ED course: 66-year-old man presenting with abdominal pain radiating to the left flank for the past 3 days. IV Toradol was administered with improvement in pain. CBC, abdominal panel, urine test ordered without any acute contributing findings. I discussed with him that this is likely musculoskeletal pain and he can follow-up with his primary care provider routinely. Return precautions were given. Departure - Departure Disposition: 01 Home, Self Care Clinical Impression: Flank pain Condition: Good Instructions: ED Muscle Aching Comments: You are seen in the emergency department for left flank pain rating to your abdomen. Your lab work and urine testing was normal. Please follow-up with your primary care provider. Return to the emergency department for new or worsening symptoms or other concerns.
[2022-08-20 21:41] VITALS: BP 133/68
== END 2022-08-20 21:44 | disposition home or self-care (01) ==
LOC: ED 20:12
DX: R10.9 Unspecified abdominal pain (principal); E78.00 Pure hypercholesterolemia, unspecified; E11.9 Type 2 diabetes mellitus without complications; Z79.84 Long term (current) use of oral hypoglycemic drugs; Z79.4 Long term (current) use of insulin; Z79.899 Other long term (current) drug therapy
CPT/HCPCS: 36415; 80053; 81001; 81003; 83690; 85025; 87086; 96374; 99284

== ENCOUNTER 2023-09-15 17:44 | Emergency (ER) | payer MEDICARE, OTHER ==
[2023-09-15 18:00] VITALS: O2SAT 97
[2023-09-15 18:17] LABS: BASOPHILS % (AUTO) 0.4 %; EOSINOPHILS # (AUTO) 0.1 10^3/uL (0.0-0.7); EOSINOPHILS % (AUTO) 0.8 %; HCT - HEMATOCRIT 47.7 % (42.0-52.0); HGB - HEMOGLOBIN 15.5 g/dL (14.0-18.0); LYMPHOCYTES # (AUTO) 2.3 10^3/uL (1.5-3.5); LYMPHOCYTES % (AUTO) 27.6 %; MEAN CORPUSCULAR HEMOGLOBIN 29.7 pg (27.0-31.0); MEAN CORPUSCULAR HGB CONC 32.5 g/dL (32.0-36.0); MEAN CORPUSCULAR VOLUME 91.4 fL (80.0-94.0); MEAN PLATELET VOLUME 9.4 fL (7.4-11.4); MONOCYTES # (AUTO) 0.7 10^3/uL (0.0-1.0); MONOCYTES % (AUTO) 8.2 %; NEUTROPHILS # (AUTO) 5.3 10^3/uL (1.5-6.6); NEUTROPHILS % (AUTO) 62.4 %; PLT - PLATELET COUNT 252 10^3/uL (130-450); RED BLOOD COUNT 5.22 10^6/uL (4.70-6.10); WHITE BLOOD COUNT 8.4 x10^3/uL (4.8-10.8)
[2023-09-15 18:28] LABS: ALBUMIN 4.2 g/dL (3.2-5.5); ALBUMIN/GLOBULIN RATIO 1.5 (1.0-2.2); BILIRUBIN,TOTAL 0.5 mg/dL (0.2-1.0); CALCIUM 9.8 mg/dL (8.5-10.3); CREATININE 1.1 mg/dL (0.6-1.3); POTASSIUM 4.1 mmol/L (3.5-4.5)
[2023-09-15 19:40] VITALS: BP 197/97
--- NOTE | 2023-09-15 19:51 | ED Physician Documentation ---
History of Present Illness - Stated complaint Stated Complaint: HIGH BP,TIRED - Chief complaint Chief Complaint: Cardiac - History obtained from History obtained from: Patient - Additonal information Additional information: 67-year-old gentleman presents for the evaluation of profound fatigue. For the last month he has had progressive fatigue, he states he feels like he just needs to go to sleep at 2 PM. In the interim he started Ozempic, and he felt he worse after that with some abdominal pains nausea and poor appetite. He states the Ozempic has helped his blood sugar control though, he was taking a lot of insulin before and now only needs small doses and his blood sugar which used to be in the 160s is now routinely in about 130s. He is under a lot of stress. He is 67, works full-time and owns his own business. He is having to care for his 98-year-old mother and an 8-year-old son simultaneously. He has a history of anxiety and depression but does not think current symptoms are related to that. Denies chest pain, trouble breathing, pain other than mild abdominal pain. PD PAST MEDICAL HISTORY - Past Medical History Cardiovascular: High cholesterol Respiratory: None Neuro: None Endocrine/Autoimmune: Type 2 diabetes GI: Pancreatitis : None HEENT: Other Psych: None Musculoskeletal: Osteoarthritis Derm: None - Past Surgical History Past Surgical History: Yes General: Cholecystectomy, Other Ortho: Carpal Tunnel surgery Cardiovascular: Vascular surgery - Present Medications Home Medications: Ambulatory Orders Medication Instructions Recorded Confirmed Lisinopril 20 mg PO DAILY 10/23/12 08/28/20 metFORMIN [Glucophage] 2,000 mg PO BIDWM 10/23/12 08/18/18 Atorvastatin [Lipitor] 10 tab PO DAILY 02/26/18 08/28/20 Insulin Aspart [NovoLOG] 20 units SQ BID 02/26/18 08/28/20 Insulin Glargine [Lantus Solostar] 34 units SQ DAILY 02/26/18 08/28/20 Doxycycline Hyclate 100 mg PO BID #20 capsule 06/22/19 08/28/20 Empagliflozin [Jardiance] 25 mg PO DAILY 06/22/19 08/28/20 amLODIPine [Norvasc] 10 mg PO DAILY 06/22/19 08/28/20 Ondansetron Odt [Zofran] 4 mg TL Q6H PRN #10 tablet 11/16/20 oxyCODONE [Roxicodone] 5 mg PO Q4-6H PRN #14 tablet 11/16/20 - Allergies Allergies/Adverse Reactions: Allergies Allergy/AdvReac Type Severity Reaction Status Date / Time Penicillins Allergy Intermediate Rash Verified 09/15/23 17:58 - Social History Does the pt smoke?: No Smoking Status: Never smoker Does the pt drink ETOH?: No Does the pt have substance abuse?: No - Immunizations Immunizations are current?: Yes - POLST Patient has POLST: No PD ED PE NORMAL - Vitals Vital signs reviewed: Yes - General General: Alert and oriented X 3, No acute distress - HEENT HEENT: PERRL, EOMI - Neck Neck: Supple, no meningeal sign, No bony TTP - Cardiac Cardiac: RRR, No murmur - Respiratory Respiratory: No respiratory distress, Clear bilaterally - Abdomen Abdomen: Non tender - Back Back: No CVA TTP, No spinal TTP - Derm Derm: Normal color, Warm and dry - Extremities Extremities: No edema, No calf tenderness / cord - Neuro Neuro: Alert and oriented X 3, Normal speech Results - Vitals Vitals: Vital Signs - 24 hr 09/15/23 09/15/23 17:53 19:36 Temperature 36.2 C L Heart Rate 85 75 Respiratory 16 18 Rate Blood Pressure 167/100 H 197/97 H O2 Saturation 97 97 Oxygen O2 Source Room air - EKG (time done) 1835 EKG releavant findings:: EKG personally interpreted by author of this note. Relevant findings are: Rate: Rate (enter#) (78) Rhythm: NSR [place]: Normal Intervals: Normal SC QRS: Normal Ischemia: Normal ST segments - Labs Labs: Laboratory Tests 09/15/23 09/15/23 18:09 18:09 WBC 8.4 RBC 5.22 Hgb 15.5 Hct 47.7 MCV 91.4 MCH 29.7 MCHC 32.5 RDW 13.0 Plt Count 252 MPV 9.4 Neut # (Auto) 5.3 Lymph # (Auto) 2.3 [place] # (Auto) 0.7 Eos # (Auto) 0.1 Baso # (Auto) 0.0 Absolute Nucleated RBC 0.00 Nucleated RBC % 0.0 Sodium 139 Potassium 4.1 Chloride 103 Carbon Dioxide 31 Anion Gap 5.0 L BUN 22 H Creatinine 1.1 Estimated GFR (MDRD) 67 L Glucose 121 H Calcium 9.8 Total Bilirubin 0.5 AST 18 ALT 19 Alkaline Phosphatase 74 Total Protein 7.0 Albumin 4.2 Globulin 2.8 Albumin/Globulin Ratio 1.5 PD Medical Decision Making - ED course ED course: 67-year-old gentleman with fatigue. Differential diagnosis of fatigue and a 67-year-old gentleman is broad and would include things like ACS, profound anemia, renal failure at [place]. His workup in the emergency department is reassuring with an unremarkable EKG, no chest pain, normal CBC and CMP. Pending on discharge are thyroid studies. Discussed with him that I not able to identify thankfully an emergency medical condition, but would recommend he stop the Ozempic pending follow-up with his primary care physician. He is also under a lot of stress. Departure - Departure Disposition: 01 Home, Self Care Clinical Impression: Fatigue Qualifiers: Fatigue type: unspecified Qualified Code(s): R53.83 - Other fatigue Condition: Good Record reviewed to determine appropriate education?: Yes Comments: Your workup today was thankfully normal with no evidence of anemia, heart disease, kidney failure, or other more severe cause of your symptoms. I suspect is combination of stress and Ozempic. Recommend you stop the Ozempic pending follow-up with your primary care physician. Also need to have a blood pressure recheck with them. Return for new or worsening symptoms. Pending on discharge are thyroid studies. I will call you probably tomorrow if they require intervention.
[2023-09-15 20:23] LABS: THYROID STIMULATING HORMONE 2.84 uIU/mL (0.34-5.60)
== END 2023-09-15 19:58 | disposition home or self-care (01) ==
LOC: ED 17:44
DX: R53.83 Other fatigue (principal); E11.9 Type 2 diabetes mellitus without complications; Z79.85 Long-term (current) use of injectable non-insulin antidiabetic drugs; Z79.84 Long term (current) use of oral hypoglycemic drugs; Z63.79 Other stressful life events affecting family and household
CPT/HCPCS: 36415; 80053; 84439; 84443; 84481; 85025; 93005; 99284

== ENCOUNTER 2024-02-22 13:49 | Outpatient (CLI) | payer OTHER | END 2024-02-22 23:59 | disposition left against medical advice (07) | LOC: EMS 13:49 | DX: U07.1 COVID-19 (principal); R50.9 Fever, unspecified; R42 Dizziness and giddiness; I10 Essential (primary) hypertension ==